=== PATIENT | female | born 1960 | race Caucasian/White ===

== ENCOUNTER 2017-10-05 15:52 | Outpatient (CLI) | payer OTHER ==
--- NOTE | 2017-10-05 16:56 | RAD ---
RADIOGRAPH CHEST 2 VIEWS: HISTORY: Preoperative clearance for a 56-year-old female. FINDINGS: There is no air space density, pulmonary edema, pleural effusion, pneumothorax, or cardiomegaly. IMPRESSION: No acute cardiopulmonary findings. jn [] POS: [facility]
[2017-10-05 17:57] LABS: #Eosinphils 0.3 thou/uL (0.0-0.7); #Lymphocytes 2.4 thou/uL (1.20-3.40); #Monocytes 0.7 thou/uL (0.11-0.59); #Neutrophils 5.9 thou/uL (1.40-6.50); %Basophils 0.4 % (0.0-1.0); %Eosinophils 2.9 % (0.0-10.0); %Lymphocytes 25.8 % (21.0-51.0); %Monocytes 7.9 % (0.0-10.0); Mean Platelet Volume 7.3 fL (7.4-10.4); Red Blood Cell (RBC) Count 4.31 mill/uL (4.20-5.40); White Blood Cell (WBC) Count 9.4 thou/uL (4.8-10.8)
[2017-10-05 18:20] LABS: Anion Gap 10 mmol/L (10-20); BUN (Urea Nitrogen) 15 mg/dL (9.8-20.1); Calc. Creatinine Clearance 0 mL/min (70-130); Calcium 9.4 mg/dL (7.8-10.44); Carbon Dioxide 29 mmol/L (22-29); Chloride 103 mmol/L (98-107); Estimated GFR-MDRD 77
== END 2017-10-05 15:53 | disposition home or self-care (01) ==
LOC: LABBT 15:52
PROVIDERS: ATTEND Surgery
DX: Z01.812 Encounter for preprocedural laboratory examination (principal); C50.912 Malignant neoplasm of unspecified site of left female breast
CPT/HCPCS: 36415; 71020; 80048; 85025

== ENCOUNTER → 2017-10-06 | Day surgery (SDC) | payer OTHER ==
[2017-10-05 16:08] VITALS: BMI 45.7
[~2017-10-06] MED LIST: Bupivacaine/Epinephrine 0.25% 30 ML VIAL ONE; Dexamethasone 20 MG/5 ML VIAL ONE; Fentanyl 100 MCG/2 ML VIAL ONE; HYDROcodone/Acetaminophen 5/325 mg Tablet ONE; Isosulfan Blue 50 MG/5 ML VIAL ONE; Ketorolac Tromethamine 30 MG/ML VIAL ONE; Levofloxacin 500 mg/D5W 100 ml Premix Bag ONE; Lidocaine 1% PF 10 ML AMP ONE; Lidocaine 1% PF 5 ML VIAL ONE; Morphine 4 MG/ML VIAL ONE; Ondansetron HCl/PF 4 MG/2 ML Vial ONE; PHENYLEPHRINE-NS 100 MCG/ML 10 ML SYRINGE ONE; PROPOFOL 200 MG/20 ML VIAL ONE; Promethazine HCl 25 MG/ML VIAL ONE; Sodium Bicarbonate 2.5 MEQ/5 ML VIAL ONE; diphenhydrAMINE 50 MG/ML VIAL ONE; ePHEDrine/0.9% NaCl/PF SYRINGE 50 mg/10 ml ONE
--- NOTE | 2017-10-06 09:37 | MMO ---
MAMMOGRAPHICALLY GUIDED NEEDLE LOCALIZATION LEFT BREAST: Date: 10/06/17 HISTORY: 56-year-old female with left breast cancer. Patient originally had a left breast ultrasound guided bi opsy at [facility] in May 2017, which revealed nonmalignant findings. Biopsy clip from that p rocedure is in the left upper outer quadrant at the anterior to middle third of the breast. Patient subsequently had another ultrasound guided left breast biopsy at [facility] in [place], which r evealed malignancy. That biopsy clip is posteriorly located in the left breast near 12 o'clock positi on. That is the one being targeted for the mammographically guided needle localization. TECHNIQUE: Signed, informed consent obtained. The breast was compressed in the craniocaudal direction in a fenes trated paddle with grid markings. The superior skin of the left breast was prepped and draped in the usual sterile fashion. A 27 gauge needle was used to apply buffered lidocaine superficially and deepl y. A 7.5 cm [place] needle was advanced from superior approach. The breast was compressed in the latera l view, and the needle tip was slightly withdrawn to appropriate position. The wire was deployed. Rep eat true lateral and craniocaudal views were obtained. The patient tolerated the procedure well. No c omplications. IMPRESSION: Technically successful mammographically guided needle localization of the posterior left breast leseloise n near the 12 o'clock position. POS: [facility]
--- NOTE | 2017-10-06 10:56 | NM ---
NUCLEAR MEDICINE LYMPHOSCINTIGRAPHY LEFT BREAST: Date: 10-06-17 History: 56-year-old female with malignant neoplasm of left upper breast at the 12 o'clock position. Technique: Signed informed consent obtained. Alcohol swab of left periareolar region in four quadrants. 30 gauge needle was used to apply buffered Lidocaine in those four quadrants. Additional alcohol swab of thos e quadrants, followed by injection of a total of 0.4 mCi Technetium 99m Sulfur Colloid divided into f our tuberculum syringes injected into the four periareolar regions. Patient tolerated the procedure w ell. No complications. FINDINGS: Anterior and lateral immediate scintigraphic images demonstrate uptake in a sentinel left axillary ly mph node (visualized on the lateral view, but obscured by the periareolar activity on the frontal vie w). IMPRESSION: Successful left breast lymphoscintigraphy. POS: [facility]
--- NOTE | 2017-10-06 14:26 | MMO ---
RADIOGRAPH SURGICAL SPECIMEN: Date: 10/06/17 HISTORY: Status post surgical excisional biopsy of left breast cancer. FINDINGS: The tissue specimen contains the distal portion of the [place] wire. The biopsy clip is located just cole perior to A-11 coordinate on the grid. IMPRESSION: 1. Successful surgical excisional biopsy of left breast lesion. 2. Successful mammographically guided left breast needle localization. POS: [facility]
--- NOTE | 2017-10-07 09:55 | OP ---
DATE OF PROCEDURE: 10/06/2017 PROCEDURE: Left breast needle localized lumpectomy and sentinel lymph node biopsy. PREOPERATIVE DIAGNOSIS: Left breast cancer. POSTOPERATIVE DIAGNOSIS: Left breast cancer. HISTORY OF PRESENT ILLNESS: Ms. Nicholson is a 56-year-old woman with biopsy proven invasive ductal carcinoma of the breast. After discussing her options, she decided to proceed with lumpectomy and sentinel lymph node biopsy. She had another area that looked suspicious on ultrasound, but was not malignant by biopsy and no other areas of concern were seen on MRI. She did have community- acquired pneumonia, but has been treated for that and has recovered with clearing of her lung x-ray and her crackles on exam and resolution of her cough and shortness of breath. DESCRIPTION OF PROCEDURE: After informed consent was obtained and appropriate preoperative needle localization performed by Radiology, the patient was taken to the operating room where she was placed in supine position and anesthesia was administered. She was prepped and draped in the standard sterile fashion and local anesthesia infused to the skin and subcutaneous tissues of the nipple and the needle localization site. Lymphazurin was injected behind the nipple and the breast massaged for five minutes. Local anesthesia was infused to the edge of the hair-bearing skin of the left axilla and a transverse incision made. The Neoprobe was used to identify the area of highest activity. A blue lymph node was identified and dissected free, clipping the draining lymphatics. Specimen count was 2039 and this was sent as sentinel lymph node #1. An additional blue lymph node of increased activity was identified, dissected free , and had a specimen count of 411. This was sent as sentinel lymph node #2. Another lymph node was found which had increased activity, but once it was dissected free and the specimen count was obtained, this only had a specimen count of 110, so this was sent as nonsentinel lymph node #3. On careful examination of the axilla, one other area of increased activity was identified and a normal appearing lymph node with increased activity was identified. This was dissected free and had a specimen count of 392. This was sent as sentinel lymph node #4. After this, no other areas of increased activity were identified and no other blue lymph nodes were seen. The wound was irrigated and hemostasis verified. Subcutaneous tissues were reapproximated with 3-0 Monocryl and the skin was closed with 4-0 Monocryl. Attention was then turned to the needle localized biopsy. An incision was made and dissection carried down along the wire until the end of the wire was in proximity. A generous lumpectomy was then performed including the entire area surrounding the end of the wire. This was oriented for pathology with a long lateral, short superior and looped superficial suture. This was sent to pathology and the clip was confirmed to be within the specimen indicating that the previously biopsied area was within the specimen. The wound was then examined and the patient was noted to have some nodular feeling tissue inferior and lateral to the biopsy cavity. Therefore, the entire margin of the inferior and lateral biopsy cavity was reexcised, again oriented with long lateral, short superior and looped superficial sutures and set aside. The wound was irrigated and hemostasis verified. Additional local anesthesia was infused circumferentially. The subcutaneous tissues were reapproximated with a running 3-0 Monocryl suture, and additional local anesthesia infused into the biopsy cavity. The skin was then closed with 4-0 Monocryl and Dermabond dressings placed to both incisions. Estimated blood loss was minimal. There were no complications. Specimen is 4 lymph nodes, 3 of which were sentinel lymph nodes, and a left needle localized lumpectomy with an extended inferior and lateral margin. Due to the thin nature of the extended margin, this specimen was taken up personally by myself to the pathology lab so that they could correctly orient it in relation to the first biopsy specimen. [facility]
== END ==
LOC: SDC 06:41
PROVIDERS: ATTEND Surgery
PROC: 07B60ZX Excision of Left Axillary Lymphatic, Open Approach, Diagnostic (ICD-10-PCS; principal; 2017-10-06)
PROC: 0HBU0ZZ Excision of Left Breast, Open Approach (ICD-10-PCS; principal; 2017-10-06)
DX: D05.12 Intraductal carcinoma in situ of left breast (principal); I10 Essential (primary) hypertension; Z88.0 Allergy status to penicillin; Z98.891 History of uterine scar from previous surgery; Z98.890 Other specified postprocedural states; Z80.1 Family history of malignant neoplasm of trachea, bronchus and lung; Z80.49 Family history of malignant neoplasm of other genital organs; Z82.49 Family history of ischemic heart disease and other diseases of the circulatory system
CPT/HCPCS: 19281; 36415; 71020; 76098; 78195; 80048; 85025; 88307; 88333; 88342; 96374; 96375; A9541; J1100; J1200; J1885; J1956; J2001; J2270; J2405; J2550; J2704; J3010; Q9968

== ENCOUNTER 2017-11-19 06:36 | Inpatient (IN) | payer OTHER ==
[2017-11-19] MEDS ORDERED: Adenosine 6 MG/2 ML VIAL ONE ×2 (07:59→08:01)
[2017-11-19] MEDS ORDERED: Verapamil 5 MG/2 ML VIAL IVP SCH (09:00)
--- NOTE | 2017-11-19 09:14 | CT ---
PRELIMINARY REPORT/[facility]/EMERGENCY AFTER HOURS PROCEDURE: EXAM: CT Angiography Chest With Intravenous Contrast CLINICAL HISTORY: 56 years female; Pain; Chest pain; Type not specified; Patient HX: R/O pe TECHNIQUE: Axial computed tomographic angiography images of the chest with intravenous contrast using pulmonary embolism protocol. CONTRAST: 100 mL of ISOVUE administered intravenously. COMPARISON: No relevant prior studies available. FINDINGS: Pulmonary arteries: Unremarkable. No pulmonary embolism. Aorta: Aortic atherosclerosis. No thoracic aortic aneurysm. Lungs: Unremarkable. No mass. No consolidation. Pleural space: Unremarkable. No significant effusion. No pneumothorax. Heart: Left ventricular hypertrophy. RV/LV ratio less than 1. No significant pericardial effusion. Mediastinum: Small hiatal hernia. Bones/joints: Degenerative change of the thoracic spine. No acute fracture. No dislocation. Soft tissues: Postsurgical changes left breast and left axilla. 1.6 cm mass at the postsurgical site left breast is indeterminate for seroma, scar or tumor. Lymph nodes: Unremarkable. No enlarged lymph nodes. IMPRESSION: No acute pulmonary embolism. Postsurgical changes left breast and left axilla. 1.6 cm mass at the postsurgical site left breast is indeterminate for seroma, scarring or tumor. This is indeterminate and can be followed up with breas t imaging. Small hiatal hernia. Thank you for allowing us to participate in the care of your patient. Dictated and Authenticated by: Ronny Ceron MD 11/19/2017 7:33 AM Central Time ([place] & [place]) FINAL REPORT CHEST CT ANGIOGRAM WITH 3D RENDERING: EMERGENCY AFTER HOURS EXAM: FINDINGS/IMPRESSION: No significant CT evidence for acute pulmonary embolism. Postsurgical changes in the left breast and left axilla with a 1.6 cm diameter mass in the postsurgical site, indeterminate. Small hiatal herni a. Left ventricular hypertrophy. POS: [facility]
[2017-11-19] MEDS ORDERED: Bisacodyl 5 MG TAB PO PRN (12:09)
[2017-11-19] MEDS ORDERED: Acetaminophen 650 MG Suppository PR PRN (12:09)
--- NOTE | 2017-11-19 12:13 | HP ---
PRIMARY CARE PHYSICIAN: Mylene Valle M.D. CHIEF COMPLAINT: Palpitations. HISTORY OF PRESENT ILLNESS: Ms. Nicholson is a pleasant 56-year-old lady who was seen at [facility] on 11/19/2017 following transfer from the emergency room at [facility]. She reports that several years ago, she had episodes of palpitations which were brief period. More r ecently, she was diagnosed in 07/2017 with cancer in the left breast. She underwent lumpectomy and r emoval of 4 lymph nodes on 10/06/2017. That night, she had palpitations that lasted an hour. She wa s referred by her primary care physician to see stenocaptioner as outpatient and she has an appointment in 12/2017. She was offered radiation therapy, and is scheduled to start her first cycle next Tuesday. Last night, she woke up in the middle of the night with palpitations. She denies any chest pain, but reports that her heart was pounding. She sat up for an hour, symptoms did not improve. She waited another half an hour before going to the emergency room. In the emergency room, she was found to be in atrial flutter with 2:1 conduction. She was treated with several medications, including diltiazem . She developed a rash with DILTIAZEM. The medications had no effect. She was subsequently transferred to this facility for further managem ent. Here, she received adenosine without any improvement. She reports that at rest, she does not have any symptoms, but when she moves, she is lightheaded. Sh e denies any fevers or chills. She denies any nausea or vomiting. She denies any abdominal pain. REVIEW OF SYSTEMS: The following complete review of systems was negative, unless otherwise mentioned in the HPI or below: Constitutional: Weight loss or gain, ability to conduct usual activities. Skin: Rash, itching. Eyes: Double vision, pain. ENT/Mouth: Nose bleeding, neck stiffness, pain, tenderness. Cardiovascular: Palpitations, dyspnea on exertion, orthopnea. Respiratory: Shortness of breath, wheezing, cough, hemoptysis, fever or night sweats. Gastrointestinal: Poor appetite, abdominal pain, heartburn, nausea, vomiting, constipation, or diarr hea. Genitourinary: Urgency, frequency, dysuria, nocturia. Musculoskeletal: Pain, swelling. Neurologic/Psychiatric: Anxiety, depression. Allergy/Immunologic: Skin rash, bleeding tendency. PAST MEDICAL HISTORY: Significant for breast cancer and hypertension. PAST SURGICAL HISTORY: Significant for left breast lumpectomy and lymph node excision. SOCIAL HISTORY: The patient denies tobacco use, alcohol use or recreational drug use. FAMILY HISTORY: No family history of premature coronary artery disease. ALLERGIES: PENICILLIN. CURRENT MEDICATIONS: Include aspirin 81 mg daily, lisinopril/hydrochlorothiazide 20/25 mg daily. PHYSICAL EXAMINATION: GENERAL: On examination, Ms. Nicholson is awake and alert, not in acute distress. VITAL SIGNS: Blood pressure is 124/89, pulse is 142. She is breathing at rate of 18, and saturating 96% on room air. EYES: No scleral icterus. No conjunctival pallor. ENT: Moist mucosal membranes, no oropharyngeal erythema or exudates. NECK: Supple, nontender, normal range of movement, trachea is midline. RESPIRATORY: Accessory muscles of breathing are not active. Chest wall movements are symmetric bila terally. Lungs are clear to auscultation without wheeze, rhonchi or crepitations. CARDIOVASCULAR: S1 and S2 are heard, regular and tachycardic. Peripheral pulses palpable. No carot id bruit, no pericardial rub. ABDOMEN: Soft, nontender, bowel sounds are heard, no hepatomegaly, no splenomegaly. NEUROLOGIC: Cranial nerves II-XII are intact. Deep tendon reflexes are 2+. PSYCHIATRIC: Normal mood, normal affect, patient is oriented to person, place, and time. SKIN: No rashes or subcutaneous nodules. MUSCULOSKELETAL: Power is 5/5 in all 4 extremities. Normal range of movement at all major extremity joints. IMAGING DATA AND LABORATORY DATA: Ms. Nicholson's labs and investigations were reviewed. I reviewed her electrocardiogram, which shows atrial flutter with 2:1 conduction. I also reviewed her chest x- ray, which does not show any pulmonary infiltrates. She also had a CT angiogram of the chest, which did not show any evidence of pulmonary embolism. Laboratory investigations show unremarkable CBC, IN R 0.9, elevated blood urea nitrogen of 22, but otherwise unremarkable comprehensive metabolic profile and normal TSH. Troponin I is normal. ASSESSMENT AND PLAN: Ms. Nicholson is a pleasant 56-year-old lady who was seen at [facility] on 11/19/2017. Her problem list includes: 1. Palpitations: Most likely secondary to atrial flutter. 2. Atrial flutter: Emergency room physician has ordered verapamil and patient is awaiting the medic ation. She will be admitted to the hospital for further management including telemetry monitoring an d Cardiology Service consultation has been requested by the emergency room physician. 3. Elevated blood urea nitrogen: Likely some element of dehydration. Will provide gentle hydration and recheck. 4. History of breast cancer. Stable. 5. Hypertension: Monitor vital signs, titrate antihypertensives as needed. Many thanks for allowing me to participate in your patient's care. Please feel free to contact me wi th any questions or concerns. LEVEL OF RISK: High. LEVEL OF COMPLEXITY: High.
[2017-11-19] MEDS ORDERED: ISOVUE-370 76%-LOCM 1 ML ONE (13:24)
[2017-11-19 15:48] VITALS: BMI 45.1
[2017-11-19] MEDS: Sodium Chloride 0.9% 1,000 ML IV SCH (16:22)
--- NOTE | 2017-11-19 18:33 | CON ---
DATE OF CONSULTATION: 11/19/2017 REASON FOR CONSULTATION: Atrial flutter. HISTORY OF PRESENT ILLNESS: Lyn is a pleasant 56-year-old woman, who has not been seen or eval uated by Cardiology in the past. She states she has had intermittent palpitations noted over the las t several weeks. She did have associated dizziness. No syncope or presyncope present. She presente d to the emergency room with atrial fibrillation with atrial flutter. She converted back to sinus rh ythm. There was a questionable allergy to Cardizem that appeared localized. PAST MEDICAL HISTORY: Breast cancer, hypertension. PAST SURGICAL HISTORY: Left breast lumpectomy. SOCIAL HISTORY: No tobacco or alcohol use. ALLERGIES: PENICILLIN. CURRENT MEDICATIONS: Aspirin, lisinopril, hydrochlorothiazide. REVIEW OF SYSTEMS: Ten point review of systems is reviewed and as above, otherwise negative. PHYSICAL EXAMINATION: GENERAL: Patient is a pleasant obese female, who is in no acute distress. The patient appears her stated age. VITAL SIGNS: Blood pressure 133/65, pulse 91, temperature 92. NEUROLOGIC: The patient is alert and oriented times 3 with no focal neurologic deficits. HEENT: Sclerae without icterus. Mouth has moist mucous membranes with normal pallor. NECK: No JVD. Carotid upstroke brisk. No bruits bilaterally. LUNGS: Clear to auscultation with unlabored respirations. BACK: No scoliosis or kyphosis. CARDIAC: Regular rate and rhythm with normal S1 and S2. No S3 or S4 noted. No significant rubs, murmurs, thrills, or gallops noted throughout the precordium. PMI is not displaced. There is no parasternal heave. ABDOMEN: Soft, nontender, nondistended. No peritoneal signs present. No hepatosplenomegaly. No abnormal striae. EXTREMITIES: 2+ femoral and 2+ dorsalis pedis pulses. No cyanosis, clubbing, or edema. SKIN: No gross abnormalities. PERTINENT LABORATORY DATA: Hemoglobin 13.7, BUN 32, creatinine 0.8. IMPRESSION: Atrial flutter, now sinus rhythm. RECOMMENDATIONS: I had a long discussion with Ms. Nicholson about treatment options including medica l therapy versus ablation. I would recommend ablation. I discussed both options, she has decided to proceed with ablation. We will keep her n.p.o. after midnight on Tuesday morning and consult Dr. Aleta turpin for ablation. Echo with Doppler has been ordered.
[2017-11-19] MEDS: Enoxaparin Sodium 120 MG/0.8 ML SYRINGE SC SCH (21:17)
[2017-11-20 06:29] LABS: #Lymphocytes 1.9 thou/uL (1.20-3.40); #Monocytes 0.7 thou/uL (0.11-0.59); #Neutrophils 9.2 thou/uL (1.40-6.50); %Basophils 0.1 % (0.0-1.0); %Eosinophils 0.3 % (0.0-10.0); %Lymphocytes 16.3 % (21.0-51.0); %Neutrophils 77.3 % (42.0-75.0); Hemoglobin 13.2 g/dL (12.0-16.0); Mean Corpuscular HGB CONC 32.9 g/dL (32.0-36.0); Mean Corpuscular Hemoglobin 30.6 pg (27.0-31.0); Mean Corpuscular Volume 92.9 fl (81.0-99.0); Mean Platelet Volume 8.2 fL (7.4-10.4); Platelet Count 267 thou/uL (130-400); RBC Distribution Width 12.5 % (11.5-14.5); Red Blood Cell (RBC) Count 4.31 mill/uL (4.20-5.40); White Blood Cell (WBC) Count 11.9 thou/uL (4.8-10.8)
[2017-11-20 06:49] LABS: Anion Gap 14 mmol/L (10-20); BUN (Urea Nitrogen) 15 mg/dL (9.8-20.1); Calc. Creatinine Clearance 195 mL/min (70-130); Calcium 9.3 mg/dL (7.8-10.44); Carbon Dioxide 20 mmol/L (22-29); Chloride 108 mmol/L (98-107); Estimated GFR-MDRD Greater than 90; Glucose 110 mg/dL (70-105); Potassium 3.9 mmol/L (3.5-5.1); Sodium 138 mmol/L (136-145)
[2017-11-20] MEDS: Enoxaparin Sodium 120 MG/0.8 ML SYRINGE SC SCH ×2 (10:13→21:13)
[2017-11-20] MEDS: Sodium Chloride 0.9% 1,000 ML IV SCH (11:12)
--- NOTE | 2017-11-20 13:44 | PRG ---
DATE OF SERVICE: 11/20/2017 SUBJECTIVE: Ms. Nicholson is doing well. Her recent echo suggested normal LVEF. She has had no rec urrent episodes of atrial flutter. OBJECTIVE: VITAL SIGNS: Blood pressure 142/72, pulse 84, temperature 96.7. LUNGS: Clear to auscultation. CARDIAC: Regular rate and rhythm. ABDOMEN: Soft, nontender, nondistended. EXTREMITIES: No edema. IMPRESSION: Atrial flutter, new onset. RECOMMENDATIONS: Consult EP and keep n.p.o.
--- NOTE | 2017-11-20 16:45 | PDOC.PN ---
- Subjective Encounter Start Date: 11/20/17 Encounter Start Time: 16:44 Pt seen for followup re: atrial flutter. Denies chest pain, shortness of breath , fevers or chills. - Objective MAR Reviewed: Yes Vital Signs & Weight: Vital Signs (12 hours) Temp Pulse Resp BP Pulse Ox 11/20/17 12:00 97.6 F 84 16 134/70 95 11/20/17 09:30 96.7 F L 84 18 95 11/20/17 08:00 96.7 F L 84 18 142/72 H 95 11/20/17 04:50 96 Weight Weight 275 lb 14.4 oz I&O: 11/19/17 11/20/17 11/21/17 06:59 06:59 06:59 Intake Total 1744 Output Total 1900 Balance -156 Result Diagrams: 11/20/17 05:26 11/20/17 05:26 EKG Reviewed by me: Yes (Tele: NSR) Phys Exam - Physical Examination Constitutional: NAD HEENT: moist MMs Neck: supple Respiratory: clear to auscultation bilateral Cardiovascular: RRR Gastrointestinal: soft Neurological: moves all 4 limbs Psychiatric: normal affect Dx/Plan (1) Atrial flutter Code(s): I48.92 - UNSPECIFIED ATRIAL FLUTTER Status: Acute (2) HTN (hypertension) Code(s): I10 - ESSENTIAL (PRIMARY) HYPERTENSION Status: Chronic (3) Breast cancer Status: Chronic - Plan * . Pt to go for ablation tomorrow. Hold Lovenox tomorrow AM. Pt likely to start radiation therapy on Tuesday. Monitor vital signs, titrate antihypertensives as needed. Review of Systems - Review of Systems Constitutional: negative: fever, chills, sweats, weakness, malaise Respiratory: negative: Cough, Dry, Shortness of Breath, Hemoptysis, SOB with Excertion, Pleuritic Pain, Sputum, Wheezing Cardiovascular: negative: chest pain, palpitations, orthopnea, paroxysmal nocturnal dyspnea, edema, light headedness - Medications/Allergies Allergies/Adverse Reactions: Allergies Allergy/AdvReac Type Severity Reaction Status Date / Time diltiazem Allergy Severe Rash Verified 11/19/17 17:23 Penicillins Allergy Verified 11/19/17 17:23 Medications: Current Medications Acetaminophen (Tylenol) 650 mg PO Q4H PRN PRN Reason: Headache/Fever or Pain Acetaminophen (Tylenol) 650 mg OR Q4H PRN PRN Reason: Headache/Fever or Pain Bisacodyl (Dulcolax) 10 mg PO DAILYPRN PRN PRN Reason: Constipation Calcium/Vitamin D (Oscal + Vit D) 1 mg PO DAILY [facility] Enoxaparin Sodium (Lovenox) 120 mg SC 0900,2100 [facility] Last Admin: 11/20/17 10:13 Dose: 120 mg Fish Oil (Fish Oil) 1,000 mg PO TID [facility] Lisinopril/HCTZ (Prinizide 20-25) 1 tab PO DAILY [facility] Sodium Chloride (Normal Saline 0.9%) 1,000 mls @ 50 mls/hr IV .Q20H [facility] Last Admin: 11/20/17 11:12 Dose: 1,000 mls Niacin (Niaspan Er) 500 mg PO HS [facility] Non-Formulary Medication (Sodium Fluoride/Potassium Nit [Prevident 5000 Enamel Protect]) 1 applic DT HS [facility] Non-Formulary Medication (Supplement) 1 tab PO DAILY [facility]
[2017-11-20] MEDS ORDERED: POTASSIUM NIT DT SCH (21:00)
[2017-11-20] MEDS ORDERED: SODIUM FLUORIDE DT SCH (21:00)
[2017-11-20] MEDS: Fish Oil 1,000 MG CAP PO SCH (21:12)
[2017-11-20] MEDS: Acetaminophen 325 MG TAB PO PRN (21:13)
[2017-11-21 05:07] LABS: #Eosinphils 0.2 thou/uL (0.0-0.7); #Lymphocytes 4.1 thou/uL (1.20-3.40); #Monocytes 0.7 thou/uL (0.11-0.59); #Neutrophils 3.4 thou/uL (1.40-6.50); %Basophils 0.4 % (0.0-1.0); %Eosinophils 2.2 % (0.0-10.0); %Lymphocytes 48.3 % (21.0-51.0); %Monocytes 8.5 % (0.0-10.0); %Neutrophils 40.7 % (42.0-75.0); Hemoglobin 12.6 g/dL (12.0-16.0); Mean Corpuscular HGB CONC 32.7 g/dL (32.0-36.0); Mean Corpuscular Hemoglobin 30.4 pg (27.0-31.0); Mean Corpuscular Volume 92.7 fl (81.0-99.0); Platelet Count 231 thou/uL (130-400); RBC Distribution Width 12.4 % (11.5-14.5); Red Blood Cell (RBC) Count 4.16 mill/uL (4.20-5.40); White Blood Cell (WBC) Count 8.4 thou/uL (4.8-10.8)
[2017-11-21] MEDS: Sodium Chloride 0.9% 1,000 ML IV SCH ×2 (05:37→10:10)
[2017-11-21 05:44] LABS: Anion Gap 12 mmol/L (10-20); BUN (Urea Nitrogen) 15 mg/dL (9.8-20.1); Calc. Creatinine Clearance 182 mL/min (70-130); Calcium 8.7 mg/dL (7.8-10.44); Carbon Dioxide 23 mmol/L (22-29); Chloride 108 mmol/L (98-107); Estimated GFR-MDRD 87; Glucose 92 mg/dL (70-105); Sodium 139 mmol/L (136-145)
[2017-11-21] MEDS ORDERED: SUPPLEMENT PO SCH (09:00)
[2017-11-21] MEDS: Fish Oil 1,000 MG CAP PO SCH ×3 (10:04→21:15)
[2017-11-21] MEDS: Enoxaparin Sodium 120 MG/0.8 ML SYRINGE SC SCH ×2 (10:04→21:14)
[2017-11-21] MEDS: Lisinopril/Hydrochlorothiazide 20/25 mg Tablet PO SCH (10:07)
[2017-11-21] MEDS: Acetaminophen 325 MG TAB PO PRN (10:09)
[2017-11-21] MEDS ORDERED: Fentanyl 100 MCG/2 ML VIAL ONE ×3 (12:30→17:44)
[2017-11-21] MEDS ORDERED: Midazolam HCl 2 mg/2 ml Vial ONE (12:30)
[2017-11-21] MEDS ORDERED: Propofol 500 MG/50 ML VIAL ONE (12:31)
[2017-11-21] MEDS: Calcium Carbonate + Vit D 250 MG TAB PO SCH (14:15)
[2017-11-21] MEDS ORDERED: PHENYLEPHRINE-NS 100 MCG/ML 10 ML SYRINGE ONE (15:14)
[2017-11-21] MEDS ORDERED: Ondansetron HCl/PF 4 MG/2 ML Vial ONE (15:14)
--- NOTE | 2017-11-21 16:32 | PDOC.PN ---
- Subjective Encounter Start Date: 11/21/17 Encounter Start Time: 08:20 Pt seen for followup re: atrial flutter. Denies chest pain, shortness of breath, fevers or chills. - Objective MAR Reviewed: Yes Vital Signs & Weight: Vital Signs (12 hours) Temp Pulse Resp BP BP Pulse Ox 11/21/17 11:28 71 20 141/87 H 94 L 11/21/17 10:07 72 153/77 H 11/21/17 08:17 97.5 F L 72 18 153/77 H 95 Weight Weight 275 lb 14.4 oz I&O: 11/20/17 11/21/17 11/22/17 06:59 06:59 06:59 Intake Total 1744 3120 Output Total 1900 2400 Balance -156 720 Result Diagrams: 11/21/17 04:29 11/21/17 04:29 EKG Reviewed by me: Yes (Tele: NSR) Phys Exam - Physical Examination Constitutional: NAD HEENT: moist MMs Neck: supple Respiratory: clear to auscultation bilateral Cardiovascular: RRR Gastrointestinal: soft Neurological: moves all 4 limbs Psychiatric: normal affect Skin: no rash Dx/Plan (1) Atrial flutter Code(s): I48.92 - UNSPECIFIED ATRIAL FLUTTER Status: Acute (2) HTN (hypertension) Code(s): I10 - ESSENTIAL (PRIMARY) HYPERTENSION Status: Chronic (3) Breast cancer Status: Chronic - Plan * . Pt awaiting ablation. No recurrence of atrial flutter. Review of Systems - Review of Systems Respiratory: negative: Cough, Dry, Shortness of Breath, Hemoptysis, SOB with Excertion, Pleuritic Pain, Sputum, Wheezing Cardiovascular: negative: chest pain, palpitations, orthopnea, paroxysmal nocturnal dyspnea, edema, light headedness - Medications/Allergies Allergies/Adverse Reactions: Allergies Allergy/AdvReac Type Severity Reaction Status Date / Time diltiazem Allergy Severe Rash Verified 11/19/17 17:23 Penicillins Allergy Verified 11/19/17 17:23 Medications: Current Medications Acetaminophen (Tylenol) 650 mg PO Q4H PRN PRN Reason: Headache/Fever or Pain Last Admin: 11/21/17 10:09 Dose: 650 mg Acetaminophen (Tylenol) 650 mg NV Q4H PRN PRN Reason: Headache/Fever or Pain Bisacodyl (Dulcolax) 10 mg PO DAILYPRN PRN PRN Reason: Constipation Calcium/Vitamin D (Oscal + Vit D) 1 mg PO DAILY [facility] Last Admin: 11/21/17 14:15 Dose: Not Given Enoxaparin Sodium (Lovenox) 120 mg SC 0900,2100 [facility] Last Admin: 11/21/17 10:04 Dose: Not Given Fish Oil (Fish Oil) 1,000 mg PO TID [facility] Last Admin: 11/21/17 10:04 Dose: Not Given Lisinopril/HCTZ (Prinizide 20-25) 1 tab PO DAILY [facility] Last Admin: 11/21/17 10:07 Dose: 1 tab Sodium Chloride (Normal Saline 0.9%) 1,000 mls @ 50 mls/hr IV .Q20H [facility] Last Admin: 11/21/17 10:10 Dose: 1,000 mls Niacin (Niaspan Er) 500 mg PO [facility] Last Admin: 11/20/17 21:12 Dose: 500 mg (Sodium Fluoride/Potassium Nit [ Prevident 5000 Enamel Protect] 1 applic DT [facility] (Supplement 1 Tab) 1 tab PO DAILY [facility]
[2017-11-21] MEDS ORDERED: DOPamine 400 MG/D5W 250 ML 250 ML ONE (17:49)
[2017-11-21] MEDS ORDERED: Ondansetron HCl/PF 4 MG/2 ML Vial IVP PRN ×2 (18:11→21:27)
[2017-11-21] MEDS ORDERED: Promethazine HCl 25 MG/ML VIAL SLOW IVP PRN (18:11)
[2017-11-21] MEDS ORDERED: Ketorolac Tromethamine 30 MG/ML VIAL IVP PRN (18:11)
[2017-11-21] MEDS ORDERED: Meperidine HCl/PF 25 MG/ML VIAL SLOW IVP PRN (18:11)
[2017-11-21] MEDS ORDERED: Promethazine HCl 25 MG/ML VIAL IM PRN (18:11)
[2017-11-21] MEDS ORDERED: diphenhydrAMINE 25 MG CAP PO PRN (21:27)
[2017-11-21] MEDS ORDERED: Bisacodyl 10 MG SUPP PR PRN (21:27)
[2017-11-21] MEDS ORDERED: Nitroglycerin 0.4 MG TAB (25 Tab Bottle) SL PRN (21:27)
[2017-11-21] MEDS ORDERED: traMADol HCl 50 MG TAB PO PRN (21:27)
[2017-11-21] MEDS ORDERED: Bisacodyl 5 MG TAB PO PRN (21:27)
[2017-11-21] MEDS ORDERED: Temazepam 15 MG CAP PO PRN (21:27)
[2017-11-21] MEDS ORDERED: Silver Sulfadiazine 1% Cream 50 GM JAR TOP PRN (21:27)
[2017-11-21] MEDS ORDERED: Mag-Al 1200 mg/1200 mg/30 ML UDCUP PO PRN (21:27)
[2017-11-22 05:32] LABS: #Basophils 0.1 thou/uL (0.0-0.2); #Eosinphils 0.2 thou/uL (0.0-0.7); #Lymphocytes 2.4 thou/uL (1.20-3.40); #Monocytes 0.9 thou/uL (0.11-0.59); #Neutrophils 5.2 thou/uL (1.40-6.50); %Basophils 0.8 % (0.0-1.0); %Eosinophils 2.2 % (0.0-10.0); %Lymphocytes 27.8 % (21.0-51.0); %Monocytes 10.1 % (0.0-10.0); %Neutrophils 59.2 % (42.0-75.0); Hemoglobin 12.9 g/dL (12.0-16.0); Mean Corpuscular HGB CONC 31.9 g/dL (32.0-36.0); Mean Corpuscular Hemoglobin 29.6 pg (27.0-31.0); Mean Corpuscular Volume 92.9 fl (81.0-99.0); Mean Platelet Volume 7.6 fL (7.4-10.4); Platelet Count 259 thou/uL (130-400); RBC Distribution Width 12.4 % (11.5-14.5); Red Blood Cell (RBC) Count 4.34 mill/uL (4.20-5.40); White Blood Cell (WBC) Count 8.7 thou/uL (4.8-10.8)
[2017-11-22 05:46] LABS: Anion Gap 11 mmol/L (10-20); BUN (Urea Nitrogen) 14 mg/dL (9.8-20.1); Calc. Creatinine Clearance 172 mL/min (70-130); Carbon Dioxide 29 mmol/L (22-29); Chloride 102 mmol/L (98-107); Estimated GFR-MDRD 83; Glucose 91 mg/dL (70-105); Potassium 3.7 mmol/L (3.5-5.1); Sodium 138 mmol/L (136-145)
[2017-11-22] MEDS: Acetaminophen 325 MG TAB PO PRN ×2 (05:55→14:31)
--- NOTE | 2017-11-22 06:03 | CON ---
DATE OF CONSULTATION: 11/21/2017 ELECTROPHYSIOLOGY CONSULTATION REPORT DICTATED FOR: Kulwinder Watson M.D. REASON FOR CONSULTATION: Atrial flutter with RVR. HISTORY OF PRESENT ILLNESS: Ms. Nicholson is a 56-year-old woman, who was recently admitted to the [facility] for heart racing and palpitations. She began feeling her heart racing at home and she has ex perienced one episode like this in the near past after recent surgery. Symptoms persisted for over a n hour. She presented to the emergency room and was found to be in 2:1 atrial flutter. She was give n diltiazem bolus and started on diltiazem drip which was ineffective in converting her to a sinus rh ythm. She also developed a rash after this medication was administered. At that time, she was trans ferred to [facility] to the emergency room where she was given adenosine initi ally 6 mg and then 12 mg which successfully restored sinus rhythm. She did have associated dizziness with her heart racing. Of note, she has recently been diagnosed with breast cancer (07/2017) and underwent lumpectomy and re moval of 4 lymph nodes on 10/05/2017. Her initial episode of heart racing had occurred the day of he r lumpectomy and she associated that with recovering from anesthesia. She denies passing out or any associated chest pain. She has not had any stroke or stroke like symptoms. PAST MEDICAL HISTORY: Breast cancer diagnosed in 07/2017, hypertension, traumatic brain injury in 05 11, and chronic headache after TBI. PAST SURGICAL HISTORY: Lumpectomy and removal of four lymph nodes on 10/06/2017. FAMILY HISTORY: Negative for sudden cardiac and negative for early onset of coronary artery di sease. 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 She lives with a friend and her 2 daughters. She denies any alcohol use, tobacco habituation or illicit drug use. REVIEW OF SYSTEMS: Twelve point review of systems is conducted and is negative except that which is listed above. HOME MEDICATIONS: Include aspirin, lisinopril, and hydrochlorothiazide. PHYSICAL EXAMINATION: GENERAL: Ms. Nicholson is a pleasant obese female, in no acute distress. She appears her stated age. Her speech is clear. Affect is appropriate. NEUROLOGIC: Grossly intact, cranial nerves II-XII. The exam is nonfocal and the patient is without deficits. HEENT: Reveals sclerae are anicteric. Her oral mucosa is moist and pink with adequate dentition. T here is no jugular venous distention, thyromegaly, or lymphadenopathy. LUNGS: Clear to auscultation bilaterally without wheezes, crackles, or rhonchi. There is good bilat eral excursion, respirations are even and unlabored. CARDIOVASCULAR: Heart rate is regularly regular without murmur, rub, or gallop. PMI is nondisplaced . EXTREMITIES: Warm and dry to touch without clubbing, cyanosis, or edema. ABDOMEN: Benign. There is no hepatosplenomegaly. Hepatojugular reflex is negative. VITAL SIGNS: Most recent temperature 98.0 degrees Fahrenheit, pulse is 68, respirations 20, oxygen s aturation 95% on room air, blood pressure 129/60. DATABASE: A 12-lead EKG from the emergency room was reviewed which was 2:1 conducted typical atrial flutter at a rate of 148 beats per minute. Telemetry review; normal sinus rhythm with occasional ectopy, no recurrent atrial arrhythmias since c hemical cardioversion. Echocardiogram performed today, the results pending. IMPRESSION: 1. Typical atrial flutter with 2:1 conduction with rapid ventricular response, rate 148. 2. Hypertension. RECOMMENDATIONS: Atrial arrhythmias were discussed at length with Ms. Nicholson and treatment option s as well. We discussed medical therapy versus ablation. Given this is typical atrial flutter, it i s reasonable to proceed with CTI ablation to resolve her symptoms and arrhythmia. We discussed the r isks and benefits with the patient and her daughters who were present. Risks include hematoma, bleed ing at the groin access site, perforation of the heart, and possible need for pacemaker as well as in vasive surgery for repair of any damaged cardiac tissue. They understand the risks and wish to proce ed with procedure. She has been n.p.o. since midnight. All questions were answered. Thank you for allowing us to participate in the care of this patient. Dictated by LAUREN Jane
--- NOTE | 2017-11-22 06:49 | CCL ---
DATE OF SERVICE: 11/21/2017 ELECTROPHYSIOLOGY STUDY AND RADIOFREQUENCY ABLATION REPORT REFERRING PHYSICIAN: Dr. Schafer. REASON FOR PROCEDURE: Mrs. Nicholson is a 56-year-old woman with history of hypertension without prior heart disease who presented with atrial flutter with rapid rates EKG assisting of isthmus dependent atrial flutter. The flutter terminated, by the time, she was admitted. Currently in sinus rhythm. PROCEDURE: Patient received deep sedation per Anesthesia specialist. After adequate level of sedation achieved, the right femoral venous area was prepped, draped and anesthetized using subcutaneous lidocaine with ultrasound guidance, the right femoral vein was cannulated x2. Through this a decapolar catheter was advanced to the RA, His bundle, and RV and eventually the CS position. Pace mapping and recording was performed in each location. Also a Avisena ST, SF catheter was advanced to the right atrium, 3D MAP over the right atrium. ----- - and CS was positioned and the CTI isthmus were obtained. Following that, basic EP study was performed demonstrating the following AV Wenckebach cycle was 380 milliseconds, retrograde Wenckebach cycle was 340 milliseconds. AV ivanna ERP was 600 to 80, no dual AV ivanna physiology was seen. Concentric retrograde VA conduction was noted. No evidence of accessory pathway. AH was 121 and HV was 37 milliseconds at baseline. With burst atrial pacing, we were able to induce typical atrial flutter. CS 9-10 overdrive pacing produced post- pacing interval identical to the ------ cycle length switched to 260 milliseconds. Following that during the ablation of the cavotricuspid isthmus termination of the atrial flutter was achieved. Following that proximal CS pacing, but continued and is able to demonstrate increasing with transisthmus time from 60 milliseconds to 260 milliseconds. The transisthmus block was demonstrated by longest transisthmus times by the ablation line and progressive shortening moving away from the line on the lateral side. Following that, the burst pacing did not induce atypical atrial flutter. At transient atrial fibrillation was seen and an attempts to overdrive the atrial flutter in the beginning, but was not treated in the end of the case. IV dopamine was administered and the conduction block remained in tachycardia. In the end of the case, the cardiac silhouette did not reveal changes. CONCLUSION: 1. Inducible typical isthmus-dependent atrial flutter. 2. Termination of the atrial flutter achieved during cavotricuspid isthmus ablation. 3. The cavotricuspid isthmus block was achieved with ablation prolonging the transisthmus time over 150 milliseconds. 4. Normal AV ivanna physiology, no other signs of accessory pathway or dual AV ivanna physiology was seen. PLAN: Routine followup. Consider anticoagulation, recurrent atrial fibrillation is seen. POS: [facility]
[2017-11-22] MEDS: Apixaban 5 MG TAB PO SCH ×2 (08:40→20:31)
[2017-11-22] MEDS: Lisinopril/Hydrochlorothiazide 20/25 mg Tablet PO SCH (08:41)
[2017-11-22] MEDS: Fish Oil 1,000 MG CAP PO SCH ×3 (08:41→20:31)
[2017-11-22] MEDS: Calcium Carbonate + Vit D 250 MG TAB PO SCH (08:41)
[2017-11-22] MEDS ORDERED: Oseltamivir 75 MG CAP PO SCH (15:00)
--- NOTE | 2017-11-22 15:09 | PDOC.PN ---
- Subjective Encounter Start Date: 11/22/17 Encounter Start Time: 15:09 Pt seen for followup re: atrial flutter. Reports low-grade fever. No chest pain or shortness of breath. - Objective MAR Reviewed: Yes Vital Signs & Weight: Vital Signs (12 hours) Temp Pulse Resp BP BP BP Pulse Ox 11/22/17 12:00 99.1 F 72 20 122/70 94 L 11/22/17 08:41 66 105/57 L 11/22/17 08:00 98.8 F 66 16 105/57 L 84 L 11/22/17 03:42 98.1 F 74 18 105/61 94 L Weight Weight 275 lb 14.4 oz I&O: 11/21/17 11/22/17 11/23/17 06:59 06:59 06:59 Intake Total 3120 550 Output Total 2400 1800 Balance 720 -1250 Result Diagrams: 11/22/17 04:44 11/22/17 04:44 EKG Reviewed by me: Yes (Tele; NSR) Phys Exam - Physical Examination Constitutional: NAD HEENT: moist MMs Neck: supple Respiratory: clear to auscultation bilateral Cardiovascular: RRR Gastrointestinal: soft Musculoskeletal: pulses present Neurological: moves all 4 limbs Psychiatric: normal affect Dx/Plan (1) Atrial flutter Code(s): I48.92 - UNSPECIFIED ATRIAL FLUTTER Status: Acute (2) HTN (hypertension) Code(s): I10 - ESSENTIAL (PRIMARY) HYPERTENSION Status: Chronic (3) Breast cancer Status: Chronic - Plan plan discussed w/ family, out of bed/ambulate * . s/p ablation, now in sinus rhythm. Start Tamiflu, check viral PCR (influenza screen is negative). Observe overnight on telemetry. Likely discharge 24-48 hrs. Review of Systems - Review of Systems Constitutional: fever Respiratory: negative: Cough, Dry, Shortness of Breath, Hemoptysis, SOB with Excertion, Pleuritic Pain, Sputum, Wheezing Cardiovascular: negative: chest pain, palpitations, orthopnea, paroxysmal nocturnal dyspnea, edema, light headedness - Medications/Allergies Allergies/Adverse Reactions: Allergies Allergy/AdvReac Type Severity Reaction Status Date / Time diltiazem Allergy Severe Rash Verified 11/19/17 17:23 Penicillins Allergy Verified 11/19/17 17:23 Medications: Current Medications Acetaminophen (Tylenol) 650 mg ND Q4H PRN PRN Reason: Headache/Fever or Pain Acetaminophen (Tylenol) 650 mg PO Q4H PRN PRN Reason: Mild Pain 1-3 Last Admin: 11/22/17 14:31 Dose: 650 mg Al Hydroxide/Mg Hydroxide (Maalox) 15 ml PO Q4H PRN PRN Reason: Heartburn or Indigestion Apixaban (Eliquis) 5 mg PO BID [facility] Last Admin: 11/22/17 08:40 Dose: 5 mg Bisacodyl (Dulcolax) 10 mg PO DAILYPRN PRN PRN Reason: Constipation Bisacodyl (Dulcolax) 10 mg ND DAILYPRN PRN PRN Reason: Constipation Calcium/Vitamin D (Oscal + Vit D) 1 mg PO DAILY [facility] Last Admin: 11/22/17 08:41 Dose: Not Given Diphenhydramine HCl (Benadryl) 25 mg PO Q6H PRN PRN Reason: Itching Fish Oil (Fish Oil) 1,000 mg PO TID [facility] Last Admin: 11/22/17 14:31 Dose: 1,000 mg Lisinopril/HCTZ (Prinizide 20-25) 1 tab PO DAILY [facility] Last Admin: 11/22/17 08:41 Dose: 1 tab Sodium Chloride (Normal Saline 0.9%) 1,000 mls @ 50 mls/hr IV .Q20H [facility] Last Admin: 11/21/17 10:10 Dose: 1,000 mls Niacin (Niaspan Er) 500 mg PO [facility] Last Admin: 11/21/17 21:16 Dose: 500 mg Nitroglycerin (Nitrostat) 0.4 mg SL Q5MIN PRN PRN Reason: Chest Pain (Sodium Fluoride/Potassium Nit [ Prevident 5000 Enamel Protect] 1 applic DT [facility] Ondansetron HCl (Zofran) 4 mg IVP Q6H PRN PRN Reason: Nausea/Vomiting Oseltamivir Phosphate (Tamiflu) 75 mg PO BID [facility] Oseltamivir Phosphate (Tamiflu) 75 mg PO NOW [facility] Stop: 11/22/17 17:00 Silver Sulfadiazine (Silvadene) 0 gm TOP Q12H PRN PRN Reason: Rash/Topical Irritation Sodium Chloride (Flush - Normal Saline) 10 ml IVF Q12HR [facility] Last Admin: 11/22/17 08:40 Dose: 10 ml Sodium Chloride (Flush - Normal Saline) 10 ml IVF PRN PRN PRN Reason: Saline Flush Temazepam (Restoril) 15 mg PO HSPRN PRN PRN Reason: Insomnia Tramadol HCl (Ultram) 50 mg PO Q4H PRN PRN Reason: FOR MODERATE PAIN 4-6 Last Admin: 11/22/17 02:25 Dose: 50 mg
--- NOTE | 2017-11-22 15:59 | PDOC.CTH ---
<Reena Maravilla - Last Filed: 11/22/17 15:57> Cardiology Progress Note - Subjective EP progress note Patient did well overnight. She has been ambulating OOB. Denies heart racing, palpitations, dizziness, shortness of breath, or chest pain. Reports having chills with low grade fever today. No pain at groin access site. Vomited this AM. - Objective Vital Signs Temp Pulse Resp BP BP Pulse Ox 11/22/17 12:00 99.1 F 72 20 122/70 94 L 11/22/17 08:41 66 105/57 L 11/22/17 08:00 98.8 F 66 16 105/57 L 84 L Weight 275 lb 14.4 oz 11/21/17 11/22/17 11/23/17 06:59 06:59 06:59 Intake Total 3120 550 Output Total 2400 1800 Balance 720 -1250 - Physical Examination General/Neuro: alert & oriented x3, NAD Neck: carotid US brisk, no JVD present Lungs: CTA, unlabored respirations Heart: PMI normal, RRR Abdomen: no HSM, other: (HJR negative) Other PE findings: right groin access site stable, no hematoma or oozing - Telemetry Telemetry Rhythm: NSR - Labs Result Diagrams: 11/22/17 04:44 11/22/17 04:44 - Assessment/Plan 1. Typical atrial flutter with RVR s/o successful CTI ablation, without recurrence. 2. Atrial arrhythmias- atrial fibrillation and atypical flutter seen during ablation on 11/21/17. 3. CHADs VASc- 2 on the basis of HTN and female gender. Higher risk for coagulopathies with cancer/cancer treatment. Eliquis 5mg BID initiated for CVA prophylaxis 4. Low grade fever- negative for Influenza A/B. managed by hospitalist. Requesting clinic follow up in 4-6 weeks after discharge. [facility] clinic on [facility]. <Kulwinder Watson - Last Filed: 11/22/17 18:34> Cardiology Progress Note - Objective Vital Signs Temp Pulse Resp BP BP Pulse Ox 11/22/17 16:00 97.4 F L 70 20 135/76 93 L 11/22/17 12:00 99.1 F 72 20 122/70 94 L 11/22/17 08:41 66 105/57 L 11/22/17 08:00 98.8 F 66 16 105/57 L 84 L Weight 275 lb 14.4 oz 11/21/17 11/22/17 11/23/17 06:59 06:59 06:59 Intake Total 3120 550 Output Total 2400 1800 Balance 720 -1250 - Labs Result Diagrams: 11/22/17 04:44 11/22/17 04:44 Attending Addendum - Attending Addendum I personally evaluated the patient and discussed the management with Ms Maravilla. I agree with the History, Examination, Assessment and Plan documented above with any addition or exceptions noted below. 1. Paroxysmal Typical atrial flutter on presentation. reinducible on EPS. Also afl converted to true afib. None reinducibel after CTI ablation. PLan OAC. Monitor for recurrent arrhtyhmia.
--- NOTE | 2017-11-22 18:40 | RAD ---
TWO VIEW CHEST: 11/22/17 HISTORY: Cough and congestion. Assess for infiltrates. COMPARISON: 10/05/17. Lungs appear well aerated. No infiltrate identified. No effusion. No evidence of edema or vascular c ongestion. Heart size is within normal range. Numerous surgical clips in the left axilla and overlie the left breast. IMPRESSION: No acute infiltrate identified. POS: [facility]
[2017-11-22 20:04] LABS: Bilirubin Negative (Negative); Blood, Urine Negative (Negative); Clarity CLEAR (Clear); Glucose, Urine (Dipstick) Negative (Negative); Leukocyte Negative (Negative); Nitrite Negative (Negative); Protein, Urine (Dipstick) Negative (Neg-Trace); Specific Gravity, Urine 1.024 (1.002-1.036); Urobilinogen 0.2 mg/dL (0.2-1.0)
[2017-11-22] MEDS: Sodium Chloride 0.9% 1,000 ML IV SCH (20:30)
[2017-11-22] MEDS: Oseltamivir 75 MG CAP PO SCH (20:32)
--- NOTE | 2017-11-22 21:13 | EKG ---
Test Reason : Blood Pressure : / mmHG Vent. Rate : 066 BPM Atrial Rate : 066 BPM P-R Int : 122 ms QRS Dur : 108 ms QT Int : 410 ms P-R-T Axes : -03 023 032 degrees QTc Int : 429 ms Normal sinus rhythm Normal ECG When compared with ECG of 21-NOV-2017 18:41, (Unconfirmed) No significant change was found Confirmed by YE BYRNE ([id number]) on 11/22/2017 9:12:56 PM Referred By: [facility] Confirmed By:YE BYRNE
--- NOTE | 2017-11-22 21:16 | EKG ---
Test Reason : Blood Pressure : / mmHG Vent. Rate : 061 BPM Atrial Rate : 061 BPM P-R Int : 166 ms QRS Dur : 098 ms QT Int : 414 ms P-R-T Axes : 029 041 025 degrees QTc Int : 416 ms Normal sinus rhythm Cannot rule out Anterior infarct , age undetermined (Doubtful) Abnormal ECG When compared with ECG of 19-NOV-2017 10:59, Vent. rate has decreased BY 34 BPM Confirmed by YE BYRNE ([id number]) on 11/22/2017 9:16:41 PM Referred By: Confirmed By:YE BYRNE
[2017-11-23] MEDS: Apixaban 5 MG TAB PO SCH (09:05)
[2017-11-23] MEDS: Acetaminophen 325 MG TAB PO PRN (09:05)
[2017-11-23] MEDS: Calcium Carbonate + Vit D 250 MG TAB PO SCH (09:06)
[2017-11-23] MEDS: Fish Oil 1,000 MG CAP PO SCH ×2 (09:06→15:49)
[2017-11-23] MEDS: Oseltamivir 75 MG CAP PO SCH (09:06)
[2017-11-23] MEDS: Lisinopril/Hydrochlorothiazide 20/25 mg Tablet PO SCH (09:06)
[2017-11-23 12:03] LABS: #Basophils 0.1 thou/uL (0.0-0.2); #Eosinphils 0.2 thou/uL (0.0-0.7); #Lymphocytes 2.3 thou/uL (1.20-3.40); #Monocytes 0.8 thou/uL (0.11-0.59); #Neutrophils 4.6 thou/uL (1.40-6.50); %Basophils 0.6 % (0.0-1.0); %Eosinophils 2.5 % (0.0-10.0); %Lymphocytes 28.6 % (21.0-51.0); %Monocytes 10.4 % (0.0-10.0); %Neutrophils 57.8 % (42.0-75.0); Hemoglobin 13.3 g/dL (12.0-16.0); Mean Corpuscular HGB CONC 33.1 g/dL (32.0-36.0); Mean Corpuscular Hemoglobin 30.6 pg (27.0-31.0); Mean Corpuscular Volume 92.5 fl (81.0-99.0); Mean Platelet Volume 7.3 fL (7.4-10.4); Platelet Count 277 thou/uL (130-400); RBC Distribution Width 12.3 % (11.5-14.5); Red Blood Cell (RBC) Count 4.36 mill/uL (4.20-5.40); White Blood Cell (WBC) Count 7.9 thou/uL (4.8-10.8)
[2017-11-23 12:15] LABS: Anion Gap 12 mmol/L (10-20); BUN (Urea Nitrogen) 13 mg/dL (9.8-20.1); Calc. Creatinine Clearance 182 mL/min (70-130); Calcium 9.4 mg/dL (7.8-10.44); Carbon Dioxide 26 mmol/L (22-29); Chloride 103 mmol/L (98-107); Estimated GFR-MDRD 88; Glucose 90 mg/dL (70-105); Potassium 3.8 mmol/L (3.5-5.1); Sodium 137 mmol/L (136-145)
--- NOTE | 2017-11-23 16:21 | PDOC.CTH ---
Cardiology Progress Note - Subjective Patient doing well overnight. Denies pain at right groin access site. No chest pain, pressure, palpitations, or heart racing. No shortness of breath or dyspnea. No fevers or chills since yesterday. Up walking around OOB. - Objective Vital Signs Temp Pulse Resp BP Pulse Ox 11/23/17 12:10 98.1 F 62 16 135/86 95 11/23/17 09:00 97.8 F 78 16 130/75 96 Weight 275 lb 14.4 oz 11/22/17 11/23/17 11/24/17 06:59 06:59 06:59 Intake Total 550 Output Total 1800 Balance -1250 - Physical Examination General/Neuro: alert & oriented x3, NAD Neck: carotid US brisk, no JVD present Lungs: CTA, unlabored respirations Heart: PMI normal, RRR Abdomen: no HSM, NT/ND Extremities: other: - Telemetry Telemetry Rhythm: NSR - Labs Result Diagrams: 11/23/17 11:47 11/23/17 11:47 - Assessment/Plan 1. Typical atrial flutter with RVR- s/p CTI ablation on 11/21/17. No recurrence of arrhythmia. 2. Atrial fibrillation-seen during ablation only. No recurrence. Will monitor for now. Continue with NOAC upon discharge. Follow up as outpatient and will have patient do 7 day home monitor before she is seen in clinic. Ok for discharge by EP
[2017-11-23 16:39] VITALS: BP 128/85; TEMP 98.6
[2017-11-23] MEDS: Sodium Chloride 0.9% 1,000 ML IV SCH (16:46)
--- NOTE | 2017-11-24 00:36 | DIS ---
DATE OF ADMISSION: 11/19/2017 DATE OF DISCHARGE: 11/23/2017 PRIMARY CARE PHYSICIAN: Dr. Mylene Valle. DISCHARGE DIAGNOSES: Atrial flutter with 2:1 conduction. CONSULTATIONS DURING THIS HOSPITALIZATION: Cardiology, Dr. Schafer and Electrophysiology, Dr. Aleta turpin. CONDITION OF PATIENT AT THE TIME OF DISCHARGE: Stable. I assessed Ms. Nicholson on the day of disch arge. She denies any chest pain or shortness of breath. Vital signs are stable. S1 and S2 are hear d, regular. Lungs are clear to auscultation bilaterally. auto servicer shows normal sinus rhyth m. HOSPITAL COURSE: Ms. Nicholson is a pleasant 57-year-old lady, who was admitted to [facility] on 11/19/2017 for atrial flutter. She was seen by Cardiology and Electrophysiology services. She was recommended ablation. On 11/21/2017, she had EP study. She was found to have ind ucible typical isthmus-dependent atrial flutter. The termination of the atrial flutter was achieved during cavotricuspid isthmus ablation. She has been started on apixaban. Her aspirin was discontinued. She had low grade fever on 11/22/19 18. She was started on Tamiflu even though influenza screen was negative, while awaiting respiratory virus PCR panel. She did not have any fevers on 11/23/2017. Respiratory virus PCR panel came back negative. Tamiflu was stopped. At the time of this dictation, urine culture and blood cultures are preliminary, without any growth. She is advised to follow up with her primary care physician for the final cultures reports. DISCHARGE MEDICATIONS: Apixaban 5 mg 2 times a day, calcium citrate/vitamin D3 one tablet daily, fis h oil 1 capsule 3 times a day, lisinopril/hydrochlorothiazide 20/25 mg daily, niacin 500 mg at bedtim e, and supplements 1 tablet daily. On the day of discharge, she has normal white count, normal hemoglobin, normal platelet count, normal basic metabolic profile. Many thanks for allowing me to participate in your patient's care. Please feel free to contact me wi th any questions or concerns. DISCHARGE DESTINATION: Home. TOTAL AMOUNT OF TIME SPENT COORDINATING THIS DISCHARGE: 28 minutes.
== END 2017-11-23 17:41 | disposition home or self-care (01) | DRG 274 ==
LOC: ERS 06:36 → ERHOLD 09:59 → 2NO 15:35
PROVIDERS: ADMIT Student in an Organized Health Care Education/Training Program; ATTEND Student in an Organized Health Care Education/Training Program
PROC: 02583ZZ Destruction of Conduction Mechanism, Percutaneous Approach (ICD-10-PCS; principal; 2017-11-21)
DX: I48.3 Typical atrial flutter (principal); C50.912 Malignant neoplasm of unspecified site of left female breast; I10 Essential (primary) hypertension; I48.91 Unspecified atrial fibrillation; E86.0 Dehydration
CPT/HCPCS: 36415; 71046; 71275; 80048; 81003; 85025; 87040; 87086; 87633; 87804; 93005; 93010; 93306; 93613; 93621; 93622; 93623; 93653; 96361; 96365; 96366; 96375; 96376; 99292; A4216; C1730; C1769; J0153; J0282; J1265; J1644; J1650; J2250; J2405; J2704; J3010; J7050

== ENCOUNTER 2018-04-21 08:20 | Outpatient (CLI) | payer OTHER | END 2018-04-21 08:21 | disposition home or self-care (01) | LOC: BICMAMMO 08:20 | PROVIDERS: ATTEND Surgery | DX: Z08 Encounter for follow-up examination after completed treatment for malignant neoplasm (principal); Z85.3 Personal history of malignant neoplasm of breast; Z80.3 Family history of malignant neoplasm of breast | CPT/HCPCS: 77066; G0279 ==

== ENCOUNTER 2018-07-20 09:19 | Observation (INO) | payer OTHER ==
[2018-07-19 11:08] VITALS: BMI 46.5
[2018-07-20 09:52] LABS: #Eosinphils 0.2 thou/uL (0.0-0.7); #Lymphocytes 1.3 thou/uL (1.20-3.40); #Monocytes 0.7 thou/uL (0.11-0.59); #Neutrophils 4.6 thou/uL (1.40-6.50); %Basophils 0.5 % (0.0-1.0); %Eosinophils 3.2 % (0.0-10.0); %Lymphocytes 19.3 % (21.0-51.0); %Monocytes 9.8 % (0.0-10.0); %Neutrophils 67.2 % (42.0-75.0); Mean Corpuscular HGB CONC 32.9 g/dL (32.0-36.0); Mean Corpuscular Hemoglobin 29.8 pg (27.0-31.0); Mean Corpuscular Volume 90.6 fL (78.0-98.0); Mean Platelet Volume 7.1 fL (7.4-10.4); Platelet Count 278 thou/uL (130-400); RBC Distribution Width 12.5 % (11.5-14.5); Red Blood Cell (RBC) Count 4.37 mill/uL (4.20-5.40); White Blood Cell (WBC) Count 6.8 thou/uL (4.8-10.8)
[2018-07-20 10:01] LABS: INR-International Normal Ratio 1.3; PTT 35.4 SEC (22.9-36.1); Prothrombin Time 16.6 SEC (12.0-14.7)
[2018-07-20 10:13] LABS: ALT (SGPT) 20 U/L (8-55); AST (SGOT) 20 U/L (5-34); Albumin 4.2 g/dL (3.5-5.0); Alkaline Phosphatase 95 U/L (40-150); Anion Gap 11 mmol/L (10-20); BUN (Urea Nitrogen) 18 mg/dL (9.8-20.1); Bilirubin, Total 0.3 mg/dL (0.2-1.2); Calc. Creatinine Clearance 163 mL/min (70-130); Calcium 9.7 mg/dL (7.8-10.44); Carbon Dioxide 29 mmol/L (22-29); Chloride 104 mmol/L (98-107); Estimated GFR-MDRD 77; Globulin 3.5 g/dL (2.4-3.5); Glucose 113 mg/dL (70-105); Potassium 3.9 mmol/L (3.5-5.1); Protein, Total 7.7 g/dL (6.0-8.3); Sodium 140 mmol/L (136-145)
[2018-07-20] MEDS ORDERED: Heparin 10,000 UNITS/1 ML VIAL ONE ×2 (12:36→13:40)
[2018-07-20] MEDS ORDERED: Lidocaine 1% (PF) 30 ML VIAL ONE (12:36)
[2018-07-20] MEDS ORDERED: Heparin 30,000 units/30 ml VIAL ONE (13:26)
[2018-07-20] MEDS ORDERED: PROPOFOL 200 MG/20 ML VIAL ONE (13:26)
[2018-07-20] MEDS ORDERED: PHENYLEPHRINE-NS 100 MCG/ML 10 ML SYRINGE ONE ×2 (13:26)
[2018-07-20] MEDS ORDERED: Ondansetron HCl/PF 4 MG/2 ML Vial ONE (13:26)
[2018-07-20] MEDS ORDERED: Succinylcholine Chloride 20 MG/ML 10 ml SYRINGE FS ONE (13:26)
[2018-07-20] MEDS ORDERED: Phenylephrine HCL 10 MG/ML VIAL ONE ×2 (13:32→13:54)
[2018-07-20] MEDS ORDERED: Fentanyl 100 MCG/2 ML VIAL ONE (13:32)
[2018-07-20] MEDS ORDERED: Isoproterenol 0.2 MG/1 ML AMP ONE (14:24)
[2018-07-20] MEDS ORDERED: Protamine Sulfate 50 MG/5 ML VIAL ONE (15:04)
[2018-07-20] MEDS ORDERED: Acetaminophen/Codeine 30-300mg Tablet PO PRN ×2 (18:45)
[2018-07-20] MEDS ORDERED: HYDROcodone/Acetaminophen 5/325 mg Tablet PO PRN ×2 (18:45)
--- NOTE | 2018-07-20 19:24 | OP ---
DATE OF PROCEDURE: 07/20/2018 PROCEDURE: Pulmonary vein antral isolation. CLINICAL INDICATION: Atrial fibrillation. RAILROAD DINING CAR STEWARD/STEWARDESS: Clifford Fernandez M.D. ASA CLASSIFICATION: 3. ANESTHESIA: General endotracheal anesthesia per Anesthesiology. ADDITIONAL CARDIAC MEDICATIONS: None. ESTIMATED BLOOD LOSS: Less than 5 mL TOTAL FLUOROSCOPY TIME: Zero. TOTAL RADIOFREQUENCY TIME: 36 minutes 41 seconds. ACUTE COMPLICATIONS: None apparent. METHODS: After informed consent was obtained, the patient was taken to the EP lab in fasting state. Both groins were prepped and draped using ultrasound guidance. Right and left femoral veins were ac cessed and wires were inserted into the central venous system. The wires were used to place an 8-Prem nch and a 11-Bermudian sheath in the left groin, two 8 Bermudian sheaths in the right groin and long sheath s were then used to replace the 8-Bermudian sheaths. A circular ablation catheter was placed in right g roin advanced to the right atrium. A 3D map was obtained of the right atrium and the coronary sinus. An echo probe was placed in left groin, advanced up to the right atrium and right ventricle for edson ging. A 20-pole catheter was placed in left groin, advanced up to the coronary sinus. The patient w as then anticoagulated and transseptal catheterization was performed. A 3D map was obtained of the l eft atrium using a circular ablation catheter. A temperature probe was placed in the esophagus. Thi s was visualized in the 3D mapping system. Ablation was delivered isolating all four pulmonary veins and left atrium and the posterior wall of the left atrium. The patient had spontaneous firing from the CS, which was also isolated. Ablation was performed in the previous CTI area as this did not bettie ear to be entirely, the ablation line was not intact. With isoproterenol, the patient had bursting, which appear to be a ganglionic firing from the right superior ganglia. The high right atrial marco area was ablated. At the conclusion of procedure, catheter was removed. Sheaths were pulled. Hemo stasis was achieved with collagen closure devices. RESULTS: 1. Baseline intervals, HV interval 46 milliseconds. 2. Atrial function: The patient was in sinus rhythm and isolation of all four pulmonary veins and p osterior wall of left atrium were performed. Isolation was also performed of the CS and a re-ablatio n of the CTI line was performed. Debulking of the right atrial high marco area was seen due to gang lionic firing. 3. Ablation details: Total of 36 minutes 41 seconds of RF were delivered. IMPRESSION: 1. Successful isolation of left atrial structures including pulmonary veins, posterior wall and the coronary sinus. 2. Debulking of the high marco area and re-ablation of the CTI line were performed. 3. Successful pulmonary vein antrum isolation. RECOMMENDATION: Oral anticoagulation.
[2018-07-20] MEDS ORDERED: Niacin 500 MG TAB PO SCH (21:00)
[2018-07-20] MEDS ORDERED: Gabapentin 300 MG CAP PO SCH (21:00)
[2018-07-20] MEDS ORDERED: Rivaroxaban 10 MG TAB PO SCH (21:00)
[2018-07-21] MEDS ORDERED: Ketorolac Tromethamine 30 MG/ML VIAL IVP PRN (08:25)
[2018-07-21] MEDS ORDERED: Aspirin 81 mg Enteric Coated Tablet PO SCH (09:00)
[2018-07-21] MEDS ORDERED: Anastrozole 1 MG TAB PO SCH (09:00)
[2018-07-21] MEDS ORDERED: Colchicine 0.6 MG TAB PO SCH (09:00)
[2018-07-21] MEDS ORDERED: Calcium Carbonate + Vit D 1 TAB PO SCH (09:00)
[2018-07-21] MEDS ORDERED: Lisinopril/Hydrochlorothiazide 20/25 mg Tablet PO SCH (09:00)
[2018-07-21] MEDS ORDERED: Fish Oil 1,000 MG CAP PO SCH (09:00)
[2018-07-21] MEDS ORDERED: Sodium Chloride 0.9% 250 ML 250 ML IVPB PRN (10:24)
[2018-07-21] MEDS ORDERED: Furosemide 40 MG TAB PO PRN (12:26)
[2018-07-21] MEDS ORDERED: Potassium Chloride 20 MEQ TAB PO SCH (12:45)
--- NOTE | 2018-07-21 13:14 | DIS ---
DATE OF ADMISSION: 07/20/2018 DATE OF DISCHARGE: 07/21/2018 ATTENDING PHYSICIAN: Dr. Clifford Fernandez CONDITION ON DISCHARGE: Stable. FINAL DIAGNOSES: Atrial fibrillation and atrial flutter. PROCEDURES PERFORMED: Pulmonary venous isolation ablation and reablation of the CTI line. HISTORY OF PRESENT ILLNESS: Ms. Nicholson is a 57-year-old woman with a history of atrial arrhythmias. She underwent CTI ablation for typical atrial flutter in 11/2017. While on vacation in [place] she experienced recurrence of atrial flutter with RVR that lasted 4-5 hours before spontaneously converting back to sinus rhythm. She was symptomatic. She has not been on antiarrhythmic therapy. During her initial ablation she was also found to have a left atrial circuits as well, but no more extensive ablation was done at that time. She was admitted on 07/20/2018 for an elective outpatient procedure and underwent pulmonary vein antral isolation. She received a total of 36 minutes 41 seconds RF energy delivered. During her ablation all 4 pulmonary veins were isolated including the left atrium and the posterior wall of the left atrium. She also had spontaneous firing from the coronary sinus which was also isolated. The previously ablated CTI line was not entirely intact and the ablation line was re-ablated. She also had a bursting that appear to be ganglionic firing from the right superior ganglia while on Isuprel. The high right atrial marco area was ablated and debulked. Overall, successful ablation. She has done well overnight, maintaining sinus rhythm. She did have some transient hypertension, but did not require any fluid bolus or intervention for this. She has had some chest discomfort consistent with post- ablation pain and is currently on colchicine, which has greatly relieved her discomfort. PHYSICAL EXAMINATION: GENERAL: She is alert and oriented, speech is clear, affect is appropriate She has been ambulatory and tolerating p.o. intake. She is voiding well. There is no Schneider. CARDIOVASCULAR: Heart rate is regular irregular without murmur, rub or gallop. LUNGS: Clear to auscultation bilaterally without wheezes, crackles or rhonchi. EXTREMITIES: Extremities are warm and dry to touch without clubbing, cyanosis or edema. Her bilateral groin sites are stable with some tenderness noted on the right side, but no signs of hematoma or bleeding complications. NEUROLOGIC: Grossly intact and nonfocal and gait is stable. DISCHARGE MEDICATIONS: Resuming home medications of ____, aspirin 81 mg daily, calcium with vitamin D, fish oil, gabapentin, lisinopril/hydrochlorothiazide, metoprolol succinate, niacin, Protandim, Xarelto 20 mg p.o. q.p.m. NEW PRESCRIPTIONS PROVIDED: 1. Lasix 40 mg p.o. 1 tab daily p.r.n. shortness of breath and edema. 2. Potassium chloride 20 mEq 1 tab p.o. p.r.n. only when taking Lasix. 3. Protonix 40 mg p.o. x30 days. 4. Carafate 1 gram q.i.d. x2 weeks p.o. DISCHARGE INSTRUCTIONS: These were all discussed with the patient and are available in her discharge instructions. We will have her do light duty for the next week and then gradually increase activity as tolerated. No lifting more than 15 pounds or soaking baths for 1 week. She is okay to shower. No driving for 3 days. Do not miss any doses of her blood thinning medication. Her followup appointment is on 07/26/2018 at 12:45 p.m. All questions were answered. Total time spent with discharge and report preparation 40 minutes. SAM
[2018-07-21 15:39] VITALS: BP 110/57; TEMP 98.1
[2018-07-21] MEDS ORDERED: Sucralfate 1 GM TAB PO SCH (17:00)
[2018-07-22] MEDS ORDERED: Potassium Chloride 20 MEQ TAB PO SCH ×2 (08:00→09:00)
--- NOTE | 2018-07-23 20:47 | EKG ---
Test Reason : PREOP Blood Pressure : / mmHG Vent. Rate : 065 BPM Atrial Rate : 065 BPM P-R Int : 126 ms QRS Dur : 104 ms QT Int : 420 ms P-R-T Axes : -01 033 032 degrees QTc Int : 436 ms Normal sinus rhythm Normal ECG When compared with ECG of 22-NOV-2017 07:00, No significant change was found Confirmed by Edgar HODGES ([id number]) on 07/23/2018 8:47:37 PM Referred By: ASHER Confirmed By:Edgar HODGES
--- NOTE | 2018-07-23 20:56 | EKG ---
Test Reason : Blood Pressure : / mmHG Vent. Rate : 084 BPM Atrial Rate : 084 BPM P-R Int : 000 ms QRS Dur : 094 ms QT Int : 394 ms P-R-T Axes : 000 044 012 degrees QTc Int : 465 ms Accelerated Junctional rhythm Abnormal ECG When compared with ECG of 20-JUL-2018 09:57, (Unconfirmed) Junctional rhythm has replaced Sinus rhythm Confirmed by Edgar HODGES ([id number]) on 07/23/2018 8:56:21 PM Referred By: ASHER Confirmed By:Edgar HODGES
--- NOTE | 2018-07-23 21:10 | EKG ---
Test Reason : Blood Pressure : / mmHG Vent. Rate : 090 BPM Atrial Rate : 090 BPM P-R Int : 152 ms QRS Dur : 094 ms QT Int : 350 ms P-R-T Axes : 026 035 038 degrees QTc Int : 428 ms Normal sinus rhythm Normal ECG When compared with ECG of 20-JUL-2018 16:02, (Unconfirmed) Sinus rhythm has replaced Junctional rhythm Confirmed by Edgar HODGES ([id number]) on 07/23/2018 9:10:11 PM Referred By: ASHER Confirmed By:Edgar HODGES
== END 2018-07-21 15:46 | disposition home or self-care (01) ==
LOC: CCL 09:19 → 2SE 15:59
PROVIDERS: ADMIT Internal Medicine Cardiovascular Disease; ATTEND Internal Medicine Cardiovascular Disease
PROC: 4A023FZ Measurement of Cardiac Rhythm, Percutaneous Approach (ICD-10-PCS; principal; 2018-07-20)
PROC: 4A0234Z Measurement of Cardiac Electrical Activity, Percutaneous Approach (ICD-10-PCS; 2018-07-20)
PROC: 02583ZZ Destruction of Conduction Mechanism, Percutaneous Approach (ICD-10-PCS; 2018-07-20)
PROC: 02K83ZZ Map Conduction Mechanism, Percutaneous Approach (ICD-10-PCS; 2018-07-20)
DX: I48.1 Persistent atrial fibrillation (principal); I48.92 Unspecified atrial flutter; Z88.0 Allergy status to penicillin
CPT/HCPCS: 36415; 76942; 80053; 85025; 85347; 85610; 85730; 90471; 90686; 92960; 93005; 93010; 93306; 93613; 93623; 93656; 93662; 96374; C1731; C1732; C1759; C1769; G0008; G0378; J0282; J1644; J1885; J2001; J2370; J2405; J2704; J2720; J3010

== ENCOUNTER 2018-10-11 12:26 | Outpatient (CLI) | payer OTHER ==
--- NOTE | 2018-10-11 15:30 | MRI ---
BILATERAL BREAST MRI WITH AND WITHOUT IV CONTRAST WITH REVIEW ON INDEPENDENT 3D WORKSTATION: Date: 10/11/18 HISTORY: Left breast cancer, diagnosed in July 2017, status post lumpectomy. COMPARISON: Bilateral breast MRI of 09/07/17. FINDINGS: There are small bilateral cysts. A couple of small, normal appearing intramammary lymph nodes are pre sent in the right breast. No suspicious masses or abnormal postcontrast enhancement is seen. No axill cammie or internal mammary lymphadenopathy is noted. IMPRESSION: BI-RADS Category 2 - benign findings. Return to annual mammographic screening. This study was interpreted in consultation with Dr. Miguel Bettencourt, who concurs. POS: OFF
== END 2018-10-11 12:27 | disposition home or self-care (01) ==
LOC: BICMRI 12:26
PROVIDERS: ATTEND Internal Medicine Hematology & Oncology
DX: C50.212 Malignant neoplasm of upper-inner quadrant of left female breast (principal)
CPT/HCPCS: C8908

== ENCOUNTER 2019-03-27 13:52 | Outpatient (CLI) | payer OTHER ==
--- NOTE | 2019-03-27 14:41 | MMO ---
Bilateral MAMMO Bilat Diag [facility]. CLINICAL HISTORY: Patient is 58 years old and is seen for diagnostic exam. 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 VIEWS: The views performed were: bilateral craniocaudal with tomosynthesis; bilateral mediolateral oblique with tomosynthesis; and bilateral mediolateral. FILMS COMPARED: The present examination has been compared to prior imaging studies performed at [facility] on 10/25/2012, 01/07/2014, 04/11/2017 and 04/21/2018. MAMMOGRAM FINDINGS: There are scattered fibroglandular densities. Right breast: There are benign appearing calcifications in the right breast. There are no suspicious masses, calcifications or areas of architectural distortion. Left breast: Stable post treatment change. No suspicious masses or calcifications. There are no suspicious masses, suspicious calcifications, or new areas of architectural distortion. IMPRESSION: THERE IS NO MAMMOGRAPHIC EVIDENCE OF MALIGNANCY. A ROUTINE FOLLOW-UP MAMMOGRAM IN 1 YEAR IS RECOMMENDED. THE RESULTS OF THIS EXAM WERE SENT TO THE PATIENT. ACR BI-RADS Category 2 - Benign finding MAMMOGRAPHY NOTE: 1. A negative mammogram report should not delay a biopsy if a dominant of clinically suspicious mass is present. 2. Approximately 10% to 15% of breast cancers are not detected by mammography. 3. Adenosis and dense breasts may obscure an underlying neoplasm.
== END 2019-03-27 13:53 | disposition home or self-care (01) ==
LOC: BICMAMMO 13:52
PROVIDERS: ATTEND Surgery
DX: C50.912 Malignant neoplasm of unspecified site of left female breast (principal)
CPT/HCPCS: 77066; G0279

== ENCOUNTER 2019-09-18 10:14 | Outpatient (CLI) | payer OTHER ==
--- NOTE | 2019-09-18 11:52 | MRI ---
EXAM: MRI of the breasts without and with contrast HISTORY: History of breast cancer in the left breast. COMPARISON: 10/11/2018 TECHNIQUE: Multiplanar multisequence MR images were obtained of the breasts without and with IV contr ast. 3-D MIP reformats and contrast enhancement curves were generated on a [employer] workstation. FINDINGS: Heterogeneously dense breast parenchyma is seen. Minimal background parenchymal enhancement is seen. A few scattered nonenhancing cysts are seen in both breasts. No suspicious mass or abnormal enhancement is seen within either breast. No axillary adenopathy is seen. No internal mammary lymph nodes are identified. The visualized liver is unremarkable. The visualized bones are unremarkable. IMPRESSION: BI-RADS Category 2-benign findings. Annual screening mammography is recommended.
== END 2019-09-18 10:15 | disposition home or self-care (01) ==
LOC: BICMRI 10:14
PROVIDERS: ATTEND Surgery
DX: Z08 Encounter for follow-up examination after completed treatment for malignant neoplasm (principal); Z85.3 Personal history of malignant neoplasm of breast
CPT/HCPCS: 82565; A9577; C8908

== ENCOUNTER 2019-12-03 13:16 | Emergency (ER) | payer OTHER ==
--- NOTE | 2019-12-03 14:01 | RAD ---
PA CHEST AND LEFT RIBS 4 VIEWS: Date: 12/03/2019 HISTORY: Patient fell on 11/30/2019 with continuing rib pain. FINDINGS: Surgical clips are seen in the left axilla. Heart size is within normal limits. Aorta is mildly tortu ous. Lungs are clear of infiltrates. No pleural effusion or pneumothorax. No rib fractures are detect ed. IMPRESSION: No evidence of rib fracture. POS: RAISA
[2019-12-03] MEDS ORDERED: HYDROcodone/Acetaminophen 10/325 mg Tablet ONE (14:02)
== END 2019-12-03 14:13 | disposition home or self-care (01) ==
LOC: ERS 13:16
DX: S29.9XXA Unspecified injury of thorax, initial encounter (principal); I10 Essential (primary) hypertension; Z79.82 Long term (current) use of aspirin; Z79.899 Other long term (current) drug therapy; W01.10XA Fall on same level from slipping, tripping and stumbling with subsequent striking against unspecified object, initial encounter

== ENCOUNTER 2020-04-24 14:59 | Outpatient (CLI) | payer OTHER ==
--- NOTE | 2020-04-24 15:37 | MMO ---
Bilateral MAMMO Bilat Diag [facility]. CLINICAL HISTORY: Patient is 59 years old and is seen for diagnostic exam. 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 VIEWS: The views performed were: . FILMS COMPARED: The present examination has been compared to prior imaging studies performed at [facility] on 04/11/2017, 04/21/2018, 03/27/2019 and 09/18/2019. This study has been interpreted with the assistance of computer-aided detection. MAMMOGRAM FINDINGS: There are scattered fibroglandular densities. Finding 1: There are stable benign appearing calcifications seen in both breasts. Finding 2: There are stable benign appearing densities seen in both breasts. Finding 3: There are post operative changes seen in the upper-outer region of the left breast. There are no suspicious masses, suspicious calcifications, or new areas of architectural distortion. IMPRESSION: THERE IS NO MAMMOGRAPHIC EVIDENCE OF MALIGNANCY. A ROUTINE FOLLOW-UP MAMMOGRAM IN 1 YEAR IS RECOMMENDED. THE RESULTS OF THIS EXAM WERE SENT TO THE PATIENT. ACR BI-RADS Category 2 - Benign finding MAMMOGRAPHY NOTE: 1. A negative mammogram report should not delay a biopsy if a dominant of clinically suspicious mass is present. 2. Approximately 10% to 15% of breast cancers are not detected by mammography. 3. Adenosis and dense breasts may obscure an underlying neoplasm. Reported by: LESLIE PATEL MD Electonically Signed: [id number]
== END 2020-04-24 15:00 | disposition home or self-care (01) ==
LOC: BICMAMMO 14:59
PROVIDERS: ATTEND Internal Medicine Hematology & Oncology
DX: Z08 Encounter for follow-up examination after completed treatment for malignant neoplasm (principal); Z85.3 Personal history of malignant neoplasm of breast
CPT/HCPCS: 77066; G0279

== ENCOUNTER 2020-10-21 09:25 | Outpatient (CLI) | payer OTHER ==
--- NOTE | 2020-10-21 14:38 | MRI ---
BILATERAL BREAST MRI WITH AND WITHOUT IV CONTRAST AND 3D POSTPROCESSING ON AN INDEPENDENT WORKSTATION . 10/21/20 HISTORY: History of breast cancer in the left breast. COMPARISON: Breast MRI dated 09/18/19. FINDINGS: There is minimal background parenchymal enhancement. Tiny cysts are again seen bilaterally. No suspic ious mass or abnormal postcontrast enhancement is identified. No axillary or internal mammary lymphad enopathy is noted. The visualized portions of the bones and liver are unremarkable. IMPRESSION: BIRADS 2: Benign Finding(s) Routine annual screening mammography (for women over age 40). POS: OFF
== END 2020-10-21 09:26 | disposition home or self-care (01) ==
LOC: BICMRI 09:25
PROVIDERS: ATTEND Surgery
DX: Z08 Encounter for follow-up examination after completed treatment for malignant neoplasm (principal); Z85.3 Personal history of malignant neoplasm of breast
CPT/HCPCS: 82565; A9577; C8908

== ENCOUNTER 2020-11-25 10:41 | Outpatient (CLI) | payer OTHER ==
--- NOTE | 2020-11-25 13:00 | BD ---
BONE DENSITOMETRY: INDICATION: Postmenopausal screening. FINDINGS: Lumbar Spine: BMD (g/cm2) L1 0.986 T-Score: 0.0 L2 0.843 T-Score: -1.7 L3 0.681 T-Score: -3.7 L4 0.832 T-Score: -2.1 L1-L4 0.827 T-Score: -2.0 Femoral Neck: 0.720 T-Score: -1.2 Impression: Bone mineral density of the lumbar spine and femoral neck both indicate osteopenia. 10-Year Fracture Risk: Major osteoporotic fracture: 5.7%. Hip Fracture: 0.3%. POS: AGW
== END 2020-11-25 10:42 | disposition home or self-care (01) ==
LOC: BICMAMMO 10:41
PROVIDERS: ATTEND Internal Medicine Hematology & Oncology
DX: Z13.820 Encounter for screening for osteoporosis (principal); M85.89 Other specified disorders of bone density and structure, multiple sites; T38.6X5A Adverse effect of antigonadotrophins, antiestrogens, antiandrogens, not elsewhere classified, initial encounter; Z78.0 Asymptomatic menopausal state
CPT/HCPCS: 77080

== ENCOUNTER 2021-11-05 09:42 | Outpatient (CLI) | payer OTHER | END 2021-11-05 09:43 | disposition home or self-care (01) | LOC: BICMRI 09:42 | PROVIDERS: ATTEND Surgery | DX: Z08 Encounter for follow-up examination after completed treatment for malignant neoplasm (principal); Z85.3 Personal history of malignant neoplasm of breast | CPT/HCPCS: 82565; A9577; C8908 ==

== ENCOUNTER 2022-05-17 09:22 | Outpatient (CLI) | payer OTHER | END 2022-05-17 09:23 | disposition home or self-care (01) | LOC: BICMAMMO 09:22 | PROVIDERS: ATTEND Surgery | DX: Z08 Encounter for follow-up examination after completed treatment for malignant neoplasm (principal); Z85.3 Personal history of malignant neoplasm of breast | CPT/HCPCS: 77066; G0279 ==

== ENCOUNTER 2022-08-20 11:33 | Outpatient (CLI) | payer OTHER ==
[2022-08-20 13:15] LABS: Hemoglobin 12.7 g/dL (12.0-15.5); Mean Corpuscular HGB CONC 32.7 g/dL (32.0-36.0); Mean Corpuscular Hemoglobin 29.7 pg (27.0-33.0); Mean Corpuscular Volume 90.7 fl (81.6-98.3); Mean Platelet Volume 10.6 fl (7.4-10.4); Platelet Count 309 10x3/uL (150-450); RBC Distribution Width 13.9 % (11.5-14.5); Red Blood Cell (RBC) Count 4.28 10x6/uL (3.90-5.03); White Blood Cell (WBC) Count 7.7 10x3/uL (3.5-10.5)
[2022-08-20 13:24] LABS: PTT 30.3 sec (22.0-33.0); Prothrombin Time 10.6 sec (9.5-12.1)
[2022-08-20 13:33] LABS: ALT (SGPT) 32 U/L (8-55); AST (SGOT) 28 U/L (5-34); Albumin 4.1 g/dL (3.5-5.0); Alkaline Phosphatase 116 U/L (40-110); Anion Gap 12 mmol/L (10-20); BUN (Urea Nitrogen) 23 mg/dL (9.8-20.1); Bilirubin, Direct 0.3 mg/dL (0.1-0.3); Bilirubin, Total 0.7 mg/dL (0.2-1.2); Calc. Creatinine Clearance 0 mL/min (70-130); Calcium 9.5 mg/dL (7.8-10.44); Carbon Dioxide 26 mmol/L (22-29); Chloride 103 mmol/L (98-107); Estimated GFR 87; Glucose 93 mg/dL (70-105); Protein, Total 7.1 g/dL (6.0-8.3); Sodium 137 mmol/L (136-145)
== END 2022-08-20 11:34 | disposition home or self-care (01) ==
LOC: LABBT 11:33
PROVIDERS: ATTEND Internal Medicine Cardiovascular Disease
DX: Z01.818 Encounter for other preprocedural examination (principal); I48.19 Other persistent atrial fibrillation
CPT/HCPCS: 71046; 80048; 80076; 85027; 85610; 85730; 93005; 93010

== ENCOUNTER 2022-09-11 12:22 | Inpatient (IN) | payer OTHER ==
[2022-09-11 13:24] LABS: #Eosinphils 0.2 thou/uL (0.0-0.7); #Lymphocytes 1.8 thou/uL (1.20-3.40); #Monocytes 0.8 thou/uL (0.11-0.59); #Neutrophils 5.6 thou/uL (1.40-6.50); %Basophils 0.3 % (0.0-1.0); %Eosinophils 2.8 % (0.0-10.0); %Lymphocytes 21.3 % (21.0-51.0); %Monocytes 9.6 % (0.0-10.0); Hemoglobin 13.3 g/dL (12.0-16.0); Mean Corpuscular HGB CONC 32.5 g/dL (32.0-36.0); Mean Corpuscular Volume 92.4 fl (78.0-98.0); Mean Platelet Volume 7.8 fL (7.4-10.4); Platelet Count 304 10x3/uL (130-400); RBC Distribution Width 12.9 % (11.5-14.5); Red Blood Cell (RBC) Count 4.44 mill/uL (4.20-5.40); White Blood Cell (WBC) Count 8.5 10x3/uL (4.8-10.8)
[2022-09-11] MEDS ORDERED: Digoxin 0.5 MG/2 ML AMP ONE (13:42)
[2022-09-11] MEDS ORDERED: Magnesium 2 GM/50 ML BAG (IN WATER) ONE (13:42)
[2022-09-11 13:47] LABS: ALT (SGPT) 32 U/L (8-55); AST (SGOT) 32 U/L (5-34); Alkaline Phosphatase 127 U/L (40-110); Anion Gap 15 mmol/L (10-20); BUN (Urea Nitrogen) 17 mg/dL (9.8-20.1); Bilirubin, Total 0.6 mg/dL (0.2-1.2); CK (CPK) 102 U/L (29-168); Calc. Creatinine Clearance 0 mL/min (70-130); Calcium 9.2 mg/dL (7.8-10.44); Carbon Dioxide 22 mmol/L (22-29); Chloride 104 mmol/L (98-107); Estimated GFR 93; Globulin 3.2 g/dL (2.4-3.5); Glucose 96 mg/dL (70-105); Lipase 18 U/L (8-78); Potassium 4.1 mmol/L (3.5-5.1); Protein, Total 7.2 g/dL (6.0-8.3); Sodium 137 mmol/L (136-145)
[2022-09-11] MEDS ORDERED: Guaifenesin DM 100-10/5 ML UDCUP PO PRN (17:26)
[2022-09-11] MEDS ORDERED: Acetaminophen 325 MG TAB PO PRN (17:26)
[2022-09-11] MEDS ORDERED: Senokot S 8.6-50 MG TAB PO PRN (17:26)
[2022-09-11 18:33] VITALS: BMI 45.4
[2022-09-11] MEDS: Metoprolol Tartrate 50 MG TAB PO SCH (20:11)
[2022-09-11] MEDS: Apixaban 5 MG TAB PO SCH (20:11)
[2022-09-11] MEDS: Sucralfate 1 GM TAB PO SCH (20:11)
[2022-09-11] MEDS: Montelukast Sodium 10 mg Tablet PO SCH (20:11)
[2022-09-11] MEDS: Fish Oil 1,000 MG CAP PO SCH (20:11)
[2022-09-12 05:35] LABS: #Eosinphils 0.3 thou/uL (0.0-0.7); #Monocytes 0.8 thou/uL (0.11-0.59); #Neutrophils 5.2 thou/uL (1.40-6.50); %Basophils 0.2 % (0.0-1.0); %Eosinophils 3.6 % (0.0-10.0); %Lymphocytes 23.9 % (21.0-51.0); %Monocytes 9.4 % (0.0-10.0); %Neutrophils 62.9 % (42.0-75.0); Hemoglobin 11.9 g/dL (12.0-16.0); Mean Corpuscular HGB CONC 31.7 g/dL (32.0-36.0); Mean Corpuscular Hemoglobin 29.9 pg (27.0-31.0); Mean Corpuscular Volume 94.2 fl (78.0-98.0); Mean Platelet Volume 8.1 fL (7.4-10.4); Platelet Count 287 10x3/uL (130-400); RBC Distribution Width 12.8 % (11.5-14.5); Red Blood Cell (RBC) Count 3.98 mill/uL (4.20-5.40); White Blood Cell (WBC) Count 8.2 10x3/uL (4.8-10.8)
[2022-09-12 05:56] LABS: Anion Gap 10 mmol/L (10-20); BUN (Urea Nitrogen) 19 mg/dL (9.8-20.1); Calc. Creatinine Clearance 169 mL/min (70-130); Calcium 8.9 mg/dL (7.8-10.44); Carbon Dioxide 27 mmol/L (22-29); Chloride 107 mmol/L (98-107); Estimated GFR 100; Glucose 101 mg/dL (70-105); Potassium 3.6 mmol/L (3.5-5.1); Sodium 140 mmol/L (136-145)
[2022-09-12] MEDS: Fish Oil 1,000 MG CAP PO SCH ×3 (08:53→20:54)
[2022-09-12] MEDS: Sucralfate 1 GM TAB PO SCH ×4 (08:53→20:54)
[2022-09-12] MEDS: Aspirin 81 mg Enteric Coated Tablet PO SCH (08:53)
[2022-09-12] MEDS: Apixaban 5 MG TAB PO SCH ×2 (08:53→20:54)
[2022-09-12] MEDS: Anastrozole 1 MG TAB PO SCH (08:54)
[2022-09-12] MEDS: Metoprolol Tartrate 50 MG TAB PO SCH ×2 (08:54→20:54)
[2022-09-12] MEDS: Diltiazem 125 MG in Sodium Chloride 0.9% 100 ML IVPB SCH (11:11)
[2022-09-12] MEDS: Montelukast Sodium 10 mg Tablet PO SCH (20:54)
[2022-09-13] MEDS: Metoprolol Tartrate 50 MG TAB PO SCH ×2 (08:01→20:16)
[2022-09-13] MEDS: Fish Oil 1,000 MG CAP PO SCH ×3 (08:01→20:17)
[2022-09-13] MEDS: Aspirin 81 mg Enteric Coated Tablet PO SCH (08:01)
[2022-09-13] MEDS: Apixaban 5 MG TAB PO SCH ×2 (08:01→20:17)
[2022-09-13] MEDS: Sucralfate 1 GM TAB PO SCH ×4 (08:01→20:17)
[2022-09-13] MEDS: Anastrozole 1 MG TAB PO SCH (08:01)
[2022-09-13] MEDS: Diltiazem 125 MG in Sodium Chloride 0.9% 100 ML IVPB SCH ×2 (10:54→20:19)
[2022-09-13] MEDS ORDERED: Flecainide 50 MG TAB PO SCH (14:15)
[2022-09-13] MEDS: Flecainide 50 MG TAB PO SCH (20:16)
[2022-09-13] MEDS: Montelukast Sodium 10 mg Tablet PO SCH (20:17)
[2022-09-14 05:18] LABS: Hemoglobin 12.3 g/dL (12.0-16.0); Platelet Count 289 10x3/uL (130-400)
[2022-09-14] MEDS: Sucralfate 1 GM TAB PO SCH ×4 (08:14→20:13)
[2022-09-14] MEDS: Flecainide 50 MG TAB PO SCH ×2 (08:14→20:16)
[2022-09-14] MEDS: Aspirin 81 mg Enteric Coated Tablet PO SCH (08:14)
[2022-09-14] MEDS: Metoprolol Tartrate 50 MG TAB PO SCH ×2 (08:15→20:13)
[2022-09-14] MEDS: Fish Oil 1,000 MG CAP PO SCH ×3 (08:15→20:13)
[2022-09-14] MEDS: Anastrozole 1 MG TAB PO SCH (08:15)
[2022-09-14] MEDS: Apixaban 5 MG TAB PO SCH ×2 (08:16→20:13)
[2022-09-14] MEDS ORDERED: PROPOFOL 200 MG/20 ML VIAL ONE (09:37)
[2022-09-14] MEDS: Montelukast Sodium 10 mg Tablet PO SCH (20:13)
[2022-09-15 08:08] VITALS: BP 174/93; TEMP 97.4
[2022-09-15] MEDS: Sucralfate 1 GM TAB PO SCH (08:27)
[2022-09-15] MEDS: Fish Oil 1,000 MG CAP PO SCH (08:28)
[2022-09-15] MEDS: Apixaban 5 MG TAB PO SCH (08:28)
[2022-09-15] MEDS: Aspirin 81 mg Enteric Coated Tablet PO SCH (08:28)
[2022-09-15] MEDS: Anastrozole 1 MG TAB PO SCH (08:28)
[2022-09-15] MEDS: Flecainide 50 MG TAB PO SCH (08:28)
[2022-09-15] MEDS: Metoprolol Tartrate 50 MG TAB PO SCH (08:28)
== END 2022-09-15 11:25 | disposition home or self-care (01) | DRG 309 ==
LOC: ERS 12:22 → 2SW 16:36 → OBSVTOIN 09-12 11:37
PROVIDERS: ADMIT Internal Medicine; ATTEND Family Medicine
PROC: 5A2204Z Restoration of Cardiac Rhythm, Single (ICD-10-PCS; principal; 2022-09-14)
DX: I48.0 Paroxysmal atrial fibrillation (principal); Z68.42 Body mass index [BMI] 45.0-49.9, adult; I47.1 Supraventricular tachycardia; I10 Essential (primary) hypertension; G47.33 Obstructive sleep apnea (adult) (pediatric); K21.9 Gastro-esophageal reflux disease without esophagitis; E66.01 Morbid (severe) obesity due to excess calories; Z20.822 Contact with and (suspected) exposure to COVID-19; I08.1 Rheumatic disorders of both mitral and tricuspid valves; I48.19 Other persistent atrial fibrillation; I87.2 Venous insufficiency (chronic) (peripheral); Z87.820 Personal history of traumatic brain injury; Z92.3 Personal history of irradiation; Z79.01 Long term (current) use of anticoagulants; Z79.899 Other long term (current) drug therapy; Z88.0 Allergy status to penicillin; Z88.8 Allergy status to other drugs, medicaments and biological substances; Z79.82 Long term (current) use of aspirin; Z98.890 Other specified postprocedural states; Z85.3 Personal history of malignant neoplasm of breast; Z80.1 Family history of malignant neoplasm of trachea, bronchus and lung; Z82.0 Family history of epilepsy and other diseases of the nervous system
CPT/HCPCS: 36415; 71045; 80048; 80053; 82550; 83690; 83880; 84484; 85014; 85018; 85025; 85049; 85379; 92960; 93005; 93010; 96365; 96375; G0378; J1160; J2704; J3475; J3490; U0003; U0005

== ENCOUNTER 2022-11-29 09:33 | Outpatient (CLI) | payer OTHER | END 2022-11-29 09:34 | disposition home or self-care (01) | LOC: BICMRI 09:33 | PROVIDERS: ATTEND Surgery | DX: Z08 Encounter for follow-up examination after completed treatment for malignant neoplasm (principal); R92.2 Inconclusive mammogram; Z85.3 Personal history of malignant neoplasm of breast | CPT/HCPCS: C8908 ==

== ENCOUNTER 2023-01-24 11:41 | Outpatient (CLI) | payer OTHER | END 2023-01-24 11:42 | disposition home or self-care (01) | LOC: RAD 11:41 | PROVIDERS: ATTEND Internal Medicine | DX: R06.00 Dyspnea, unspecified (principal) | CPT/HCPCS: 71046 ==

== ENCOUNTER 2023-02-11 10:55 | Day surgery (SDC) | payer OTHER ==
[2023-02-09 12:33] VITALS: BMI 45.8
[2023-02-09 13:34] LABS: Hemoglobin 12.9 g/dL (12.0-15.5); Mean Corpuscular HGB CONC 32.3 g/dL (32.0-36.0); Mean Corpuscular Hemoglobin 29.4 pg (27.0-33.0); Mean Corpuscular Volume 91.1 fl (81.6-98.3); Mean Platelet Volume 9.9 fl (7.4-10.4); Platelet Count 289 10x3/uL (150-450); RBC Distribution Width 14.6 % (11.5-14.5); Red Blood Cell (RBC) Count 4.39 10x6/uL (3.90-5.03); White Blood Cell (WBC) Count 7.5 10x3/uL (3.5-10.5)
[2023-02-09 13:47] LABS: PTT 30.2 sec (22.0-33.0); Prothrombin Time 10.4 sec (9.5-12.1)
[2023-02-09 13:53] LABS: Anion Gap 15 mmol/L (10-20); BUN (Urea Nitrogen) 18 mg/dL (9.8-20.1); Calc. Creatinine Clearance 156 mL/min (70-130); Calcium 9.7 mg/dL (7.8-10.44); Carbon Dioxide 27 mmol/L (22-29); Chloride 103 mmol/L (98-107); Estimated GFR 88; Glucose 94 mg/dL (70-105); Sodium 141 mmol/L (136-145)
[2023-02-11] MEDS ORDERED: PROPOFOL 200 MG/20 ML VIAL ONE (14:14)
== END 2023-02-11 15:33 | disposition home or self-care (01) ==
LOC: SDC 10:55
PROVIDERS: ATTEND Internal Medicine Cardiovascular Disease
PROC: 5A2204Z Restoration of Cardiac Rhythm, Single (ICD-10-PCS; principal; 2023-02-11)
DX: I48.0 Paroxysmal atrial fibrillation (principal); I48.4 Atypical atrial flutter; I47.1 Supraventricular tachycardia; I10 Essential (primary) hypertension; G47.33 Obstructive sleep apnea (adult) (pediatric); E66.9 Obesity, unspecified; Z68.41 Body mass index [BMI] 40.0-44.9, adult; Z85.3 Personal history of malignant neoplasm of breast; Z87.820 Personal history of traumatic brain injury; Z79.01 Long term (current) use of anticoagulants; Z79.82 Long term (current) use of aspirin; Z79.811 Long term (current) use of aromatase inhibitors; Z79.899 Other long term (current) drug therapy; Z88.0 Allergy status to penicillin; Z88.8 Allergy status to other drugs, medicaments and biological substances
CPT/HCPCS: 80048; 85027; 85610; 85730; 92960; 93005; 93010; J2704

== ENCOUNTER 2023-05-13 10:02 | Day surgery (SDC) | payer OTHER ==
[2023-05-10 14:48] VITALS: BMI 46.5
[2023-05-10 15:41] LABS: Hemoglobin 14.2 g/dL (12.0-15.5); Mean Corpuscular HGB CONC 34.1 g/dL (32.0-36.0); Mean Corpuscular Hemoglobin 30.2 pg (27.0-33.0); Mean Corpuscular Volume 88.5 fl (81.6-98.3); Mean Platelet Volume 10.4 fl (7.4-10.4); Platelet Count 303 10x3/uL (150-450); RBC Distribution Width 13.3 % (11.5-14.5); White Blood Cell (WBC) Count 7.5 10x3/uL (3.5-10.5)
[2023-05-10 15:56] LABS: Anion Gap 18 mmol/L (10-20); BUN (Urea Nitrogen) 20 mg/dL (9.8-20.1); Calc. Creatinine Clearance 143 mL/min (70-130); Carbon Dioxide 26 mmol/L (22-29); Chloride 97 mmol/L (98-107); Estimated GFR 80; Glucose 189 mg/dL (70-105); Magnesium 1.9 mg/dL (1.6-2.6); Potassium 2.9 mmol/L (3.5-5.1); Sodium 138 mmol/L (136-145)
[2023-05-13 11:21] LABS: Anion Gap 15 mmol/L (10-20); BUN (Urea Nitrogen) 18 mg/dL (9.8-20.1); Calc. Creatinine Clearance 152 mL/min (70-130); Calcium 9.2 mg/dL (7.8-10.44); Carbon Dioxide 26 mmol/L (22-29); Chloride 101 mmol/L (98-107); Estimated GFR 86; Glucose 106 mg/dL (70-105); Potassium 3.3 mmol/L (3.5-5.1); Sodium 139 mmol/L (136-145)
[2023-05-13] MEDS ORDERED: PROPOFOL 200 MG/20 ML VIAL ONE (13:00)
[2023-05-13] MEDS ORDERED: Lidocaine 1% PF 5 ML VIAL ONE (13:00)
== END 2023-05-13 14:16 | disposition home or self-care (01) ==
LOC: SDC 10:02
PROVIDERS: ATTEND Internal Medicine Cardiovascular Disease
DX: I48.0 Paroxysmal atrial fibrillation (principal); I47.1 Supraventricular tachycardia; I48.4 Atypical atrial flutter; R06.02 Shortness of breath; I10 Essential (primary) hypertension; G47.33 Obstructive sleep apnea (adult) (pediatric); E87.6 Hypokalemia; E83.42 Hypomagnesemia; E66.9 Obesity, unspecified; Z68.42 Body mass index [BMI] 45.0-49.9, adult; Z79.899 Other long term (current) drug therapy; Z79.01 Long term (current) use of anticoagulants; Z88.8 Allergy status to other drugs, medicaments and biological substances; Z88.0 Allergy status to penicillin; Z86.79 Personal history of other diseases of the circulatory system
CPT/HCPCS: 80048; 83735; 85027; 92960; 93005; 93010; J2704

== ENCOUNTER 2023-05-18 13:26 | Outpatient (CLI) | payer OTHER | END 2023-05-18 13:27 | disposition home or self-care (01) | LOC: LABBT 13:26 | PROVIDERS: ATTEND Internal Medicine Cardiovascular Disease | DX: Z01.818 Encounter for other preprocedural examination (principal); I48.91 Unspecified atrial fibrillation | CPT/HCPCS: 93005; 93010 ==

== ENCOUNTER → 2023-05-25 | Day surgery (SDC) | payer OTHER ==
[2023-05-18 13:55] VITALS: BMI 44.9
[2023-05-18 14:40] LABS: Hematocrit 41.2 % (34.9-44.5); Hemoglobin 13.5 g/dL (12.0-15.5); Mean Corpuscular HGB CONC 32.8 g/dL (32.0-36.0); Mean Corpuscular Hemoglobin 29.6 pg (27.0-33.0); Mean Corpuscular Volume 90.4 fl (81.6-98.3); Platelet Count 277 10x3/uL (150-450); RBC Distribution Width 13.4 % (11.5-14.5); Red Blood Cell (RBC) Count 4.56 10x6/uL (3.90-5.03); White Blood Cell (WBC) Count 8.2 10x3/uL (3.5-10.5)
[2023-05-18 14:47] LABS: Bilirubin Neg (Negative); Blood, Urine 25 (Negative); Clarity Clear (Clear); Glucose, Urine (Dipstick) Normal (Negative); Ketone, Urine Negative (Negative); Leukocyte Negative (Negative); Nitrite Negative (Negative); Protein, Urine (Dipstick) Negative (Neg-Trace); Urobilinogen Normal mg/dL (Less than 2)
[2023-05-18 14:58] LABS: PTT 29.5 sec (22.0-33.0)
[2023-05-18 15:08] LABS: ALT (SGPT) 20 U/L (8-55); AST (SGOT) 22 U/L (5-34); Albumin 4.1 g/dL (3.5-5.0); Alkaline Phosphatase 96 U/L (40-110); Anion Gap 17 mmol/L (10-20); BUN (Urea Nitrogen) 17 mg/dL (9.8-20.1); Bilirubin, Total 0.4 mg/dL (0.2-1.2); Calc. Creatinine Clearance 130 mL/min (70-130); Calcium 9.5 mg/dL (7.8-10.44); Carbon Dioxide 30 mmol/L (22-29); Chloride 96 mmol/L (98-107); Estimated GFR 74; Globulin 2.6 g/dL (2.4-3.5); Glucose 157 mg/dL (70-105); Potassium 2.9 mmol/L (3.5-5.1); Protein, Total 6.7 g/dL (6.0-8.3); Sodium 140 mmol/L (136-145)
[~2023-05-25] MED LIST changes: -Bupivacaine/Epinephrine 0.25% 30 ML VIAL ONE; -Fentanyl 100 MCG/2 ML VIAL ONE; -HYDROcodone/Acetaminophen 5/325 mg Tablet ONE; +Heparin 10,000 UNITS/ 10 ML VIAL ONE; +Isoproterenol 0.2 MG/1 ML AMP ONE; -Isosulfan Blue 50 MG/5 ML VIAL ONE; -Ketorolac Tromethamine 30 MG/ML VIAL ONE; -Levofloxacin 500 mg/D5W 100 ml Premix Bag ONE; -Lidocaine 1% PF 10 ML AMP ONE; -Lidocaine 1% PF 5 ML VIAL ONE; -Morphine 4 MG/ML VIAL ONE; -Ondansetron HCl/PF 4 MG/2 ML Vial ONE; +Ondansetron PF 4 MG/2 ML Vial ONE; -Promethazine HCl 25 MG/ML VIAL ONE; +Protamine Sulfate 50 MG/5 ML VIAL ONE; +Rocuronium Bromide 10 MG/ML (10ML VIAL) ONE; +SUGAMMADEX SODIUM 200 MG/2 ML VIAL ONE; -Sodium Bicarbonate 2.5 MEQ/5 ML VIAL ONE; -diphenhydrAMINE 50 MG/ML VIAL ONE; -ePHEDrine/0.9% NaCl/PF SYRINGE 50 mg/10 ml ONE; +fentaNYL 50 mcg/mL 1 mL Vial ONE
[2023-05-25 11:46] LABS: Anion Gap 11 mmol/L (10-20); BUN (Urea Nitrogen) 18 mg/dL (9.8-20.1); Calc. Creatinine Clearance 148 mL/min (70-130); Calcium 9.6 mg/dL (7.8-10.44); Carbon Dioxide 30 mmol/L (22-29); Chloride 100 mmol/L (98-107); Estimated GFR 87; Glucose 107 mg/dL (70-105); Potassium 3.3 mmol/L (3.5-5.1); Sodium 138 mmol/L (136-145)
== END ==
LOC: SDC 09:48
PROVIDERS: ATTEND Internal Medicine Cardiovascular Disease
DX: I48.0 Paroxysmal atrial fibrillation (principal); I48.3 Typical atrial flutter; E66.9 Obesity, unspecified; I10 Essential (primary) hypertension; G47.33 Obstructive sleep apnea (adult) (pediatric); Z85.3 Personal history of malignant neoplasm of breast; I47.1 Supraventricular tachycardia; E87.6 Hypokalemia; E83.42 Hypomagnesemia; Z68.42 Body mass index [BMI] 45.0-49.9, adult; R06.02 Shortness of breath; Z86.79 Personal history of other diseases of the circulatory system; Z79.82 Long term (current) use of aspirin; Z79.899 Other long term (current) drug therapy
CPT/HCPCS: 36415; 80048; 80053; 81003; 85027; 85347; 85610; 85730; 86850; 86900; 86901; 93462; 93621; 93623; 93653; C1732; C1759; C1760; C1769; C1884; C1893; C1894; J1100; J1644; J2405; J2704; J2720; J3010

== ENCOUNTER 2023-09-22 12:00 | Inpatient (IN) | payer OTHER ==
[2023-09-22 13:42] VITALS: BMI 48.2
[2023-09-22 13:42] LABS: Bilirubin Neg (Negative); Blood, Urine 25 (Negative); Clarity Clear (Clear); Glucose, Urine (Dipstick) 100 mg/dL (Negative); Ketone, Urine Negative (Negative); Leukocyte Negative (Negative); Nitrite Negative (Negative); Protein, Urine (Dipstick) Negative (Neg-Trace); Urobilinogen Normal mg/dL (Less than 2)
[2023-09-22 14:46] LABS: Hematocrit 44.6 % (34.9-44.5); Mean Corpuscular HGB CONC 31.4 g/dL (32.0-36.0); Mean Corpuscular Hemoglobin 28.8 pg (27.0-33.0); Mean Corpuscular Volume 91.8 fl (81.6-98.3); Mean Platelet Volume 10.5 fl (7.4-10.4); Platelet Count 306 10x3/uL (150-450); RBC Distribution Width 14.1 % (11.5-14.5); Red Blood Cell (RBC) Count 4.86 10x6/uL (3.90-5.03)
[2023-09-22 15:13] LABS: PTT 29.6 sec (22.0-33.0); Prothrombin Time 10.9 sec (9.5-12.1)
[2023-09-22 15:14] LABS: ALT (SGPT) 18 U/L (8-55); AST (SGOT) 19 U/L (5-34); Albumin 4.6 g/dL (3.5-5.0); Alkaline Phosphatase 102 U/L (40-110); Anion Gap 16 mmol/L (10-20); BUN (Urea Nitrogen) 24 mg/dL (9.8-20.1); Bilirubin, Total 0.7 mg/dL (0.2-1.2); Calc. Creatinine Clearance 141 mL/min (70-130); Calcium 9.9 mg/dL (7.8-10.44); Carbon Dioxide 25 mmol/L (22-29); Chloride 98 mmol/L (98-107); Estimated GFR 75; Globulin 3.2 g/dL (2.4-3.5); Glucose 84 mg/dL (70-105); Potassium 4.2 mmol/L (3.5-5.1); Protein, Total 7.8 g/dL (6.0-8.3); Sodium 135 mmol/L (136-145)
[2023-09-26] MEDS ORDERED: Protamine Sulfate 50 MG/5 ML VIAL ONE (06:42)
[2023-09-26] MEDS ORDERED: Heparin 10,000 UNITS/ 10 ML VIAL ONE (06:42)
[2023-09-26] MEDS ORDERED: Ciprofloxacin Lactate/D5W 400 mg/200 ml Premix ONE (07:23)
[2023-09-26] MEDS ORDERED: Clindamycin/D5W 900 mg/50 ml Premix Bag ONE (07:29)
[2023-09-26] MEDS ORDERED: fentaNYL 50 mcg/mL 1 mL Vial ONE ×2 (07:47→09:52)
[2023-09-26] MEDS ORDERED: PROPOFOL 200 MG/20 ML VIAL ONE (07:50)
[2023-09-26] MEDS ORDERED: PHENYLEPHRINE-NS 100 MCG/ML 10 ML SYRINGE ONE (07:50)
[2023-09-26] MEDS ORDERED: Ondansetron PF 4 MG/2 ML Vial ONE (07:50)
[2023-09-26] MEDS ORDERED: Lidocaine 1% PF 5 ML VIAL ONE (07:50)
[2023-09-26] MEDS ORDERED: ePHEDrine Sulfate 50 MG/10 ML VIAL ONE (07:50)
[2023-09-26] MEDS ORDERED: Rocuronium Bromide 10 MG/ML (10ML VIAL) ONE (07:50)
[2023-09-26] MEDS ORDERED: Midazolam HCl 2 mg/2 ml Vial ONE (08:02)
[2023-09-26] MEDS ORDERED: SUGAMMADEX SODIUM 200 MG/2 ML VIAL ONE ×2 (08:51→08:54)
== END 2023-09-26 14:05 | disposition home or self-care (01) | DRG 274 ==
LOC: SURG A 09-26 05:47
PROVIDERS: ADMIT Internal Medicine Cardiovascular Disease; ATTEND Internal Medicine Cardiovascular Disease
PROC: 02L73DK Occlusion of Left Atrial Appendage with Intraluminal Device, Percutaneous Approach (ICD-10-PCS; principal; 2023-09-26)
PROC: B24BZZ4 Ultrasonography of Heart with Aorta, Transesophageal (ICD-10-PCS; 2023-09-26)
DX: I48.19 Other persistent atrial fibrillation (principal); Z00.6 Encounter for examination for normal comparison and control in clinical research program; I10 Essential (primary) hypertension; E66.9 Obesity, unspecified; G47.33 Obstructive sleep apnea (adult) (pediatric); I48.4 Atypical atrial flutter; Z79.899 Other long term (current) drug therapy; Z79.01 Long term (current) use of anticoagulants; Z88.0 Allergy status to penicillin; Z88.8 Allergy status to other drugs, medicaments and biological substances; Z98.890 Other specified postprocedural states; Z85.3 Personal history of malignant neoplasm of breast; Z82.49 Family history of ischemic heart disease and other diseases of the circulatory system
CPT/HCPCS: 33340; 80053; 81003; 85027; 85347; 85610; 85730; 86850; 86900; 86901; 93005; 93010; 93306; 93312; C1759; C1760; C1894; J0744; J1644; J2250; J2405; J2704; J2720; J3010; J3490

== ENCOUNTER 2023-11-04 05:51 | Day surgery (SDC) | payer OTHER ==
[2023-11-03 11:15] VITALS: BMI 48.4
[2023-11-04] MEDS ORDERED: Ketamine In 0.9 % NaCl 50 MG/5 ML SYRINGE ONE (07:41)
[2023-11-04] MEDS ORDERED: PROPOFOL 200 MG/20 ML VIAL ONE (07:45)
[2023-11-04] MEDS ORDERED: Lidocaine 1% PF 5 ML VIAL ONE (07:45)
== END 2023-11-04 08:54 | disposition home or self-care (01) ==
LOC: SDC 05:51
PROVIDERS: ATTEND Internal Medicine Cardiovascular Disease
PROC: B246ZZ4 Ultrasonography of Right and Left Heart, Transesophageal (ICD-10-PCS; principal; 2023-11-04)
DX: I48.0 Paroxysmal atrial fibrillation (principal); I08.1 Rheumatic disorders of both mitral and tricuspid valves; Z88.0 Allergy status to penicillin; Z88.8 Allergy status to other drugs, medicaments and biological substances; Z79.899 Other long term (current) drug therapy
CPT/HCPCS: 93312; J2704; J3490

== ENCOUNTER 2023-11-14 13:16 | Outpatient (CLI) | payer OTHER | END 2023-11-14 13:17 | disposition home or self-care (01) | LOC: BICMAMMO 13:16 | PROVIDERS: ATTEND Family Medicine | DX: Z12.31 Encounter for screening mammogram for malignant neoplasm of breast (principal); Z85.3 Personal history of malignant neoplasm of breast; Z80.3 Family history of malignant neoplasm of breast | CPT/HCPCS: 77063; 77067 ==

== ENCOUNTER 2024-10-15 12:15 | Outpatient (CLI) | payer OTHER | END 2024-10-15 12:16 | disposition home or self-care (01) | LOC: RAD 12:15 | PROVIDERS: ATTEND Physician Assistant | DX: R06.02 Shortness of breath (principal) | CPT/HCPCS: 71046 ==